=== PATIENT | female | born 1955 | race Caucasian/White ===

== ENCOUNTER 2019-05-17 14:16 | Emergency (ER) | payer MEDICARE, OTHER, SELFPAY ==
--- NOTE | 2019-05-17 14:21 | ED.URI ---
HPI - URI/Sore Throat General Chief Complaint: Upper Respiratory Infection Stated Complaint: Possible sinus infection Time Seen by Provider: 05/17/19 14:38 Source: patient and RN notes reviewed Mode of arrival: ambulatory Limitations: no limitations History of Present Illness HPI Narrative: 64-year-old female presents with concern for 8 day history of sinus congestion, sinus pressure, sinus drainage, left ear fullness. MD elicited complaint: nasal congestion Related Data Home Medications Medication Instructions Recorded Confirmed atorvastatin 20 mg PO DAILY 05/17/19 05/17/19 lisinopril 20 mg PO DAILY 05/17/19 05/17/19 Allergies Allergy/AdvReac Type Severity Reaction Status Date / Time No Known Allergies Allergy Unknown Unverified 10/01/16 09:46 Review of Systems Review of Systems: Narrative: CONSTITUTIONAL: Reports malaise, fever earlier in the week. EYES: Denies visual changes, redness, or discharge. ENT: Reports rhinorrhea, congestion, sinus pain, left otalgia. Denies sore throat. CARDIOVASCULAR: Denies chest pain, palpitations, or edema. RESPIRATORY: Denies cough or dyspnea. GASTROINTESTINAL: Denies abdominal pain, nausea, vomiting, diarrhea SKIN: Denies rash or itching. MUSCULOSKELETAL: Denies myalgia. NEUROLOGIC: Denies headache. All systems reviewed & are unremarkable except as noted in HPI and below PMFSH Comments At time of signature, agree with nursing past medical, surgical, social and family history. There is no relevant family history pertinent to the presenting complaint Exam Narrative: Exam Narrative: GENERAL: Well-appearing, well-nourished, and in no acute distress. HEAD: Normocephalic, atraumatic. EYES: PERRLA, conjunctivae clear, and EOMI. ENT: Nares clear, turbinates edematous and erythematous, purulent discharge, sinus tenderness. Mucous membranes moist. TM pearly carrasco with dull light reflex bilaterally; no tragal tenderness. Oropharynx not erythematous without lesions. Tonsils not enlarged and without exudate, no drooling, no hoarseness, no trismus. NECK: Supple. No lymphadenopathy CHEST: Clear to auscultation, breath sounds equal. No wheezing, rhonchi, rales, or stridor. No respiratory distress, speaks in full sentences. HEART: Regular rate and rhythm. No murmur heard. Normal peripheral pulses. SKIN: Warm, dry, no rash. NEURO: Alert and oriented x3. PSYCH: Normal mood and affect Course Course Emergency Course: Patient is aware of diagnosis, understands and agrees to treatment plan. Anticipatory guidance given. Patient agrees to follow-up as directed and is aware of reasons to seek care at the emergency department. Portions of this record may have been created with voice recognition software Vital Signs Vital signs: Vital Signs Temperature 98.5 F 05/17/19 14:31 Pulse Rate 87 05/17/19 14:31 Respiratory Rate 16 05/17/19 14:31 Blood Pressure 153/77 H 05/17/19 14:31 Pulse Oximetry 99 05/17/19 14:31 Temperature 98.5 F 05/17/19 14:31 Pulse Rate 87 05/17/19 14:31 Respiratory Rate 16 05/17/19 14:31 Blood Pressure 153/77 H 05/17/19 14:31 Pulse Oximetry 99 05/17/19 14:31 Reviewed. MDM - URI/Sore Throat MDM Narrative Medical decision making narrative: Differential diagnosis considered: Strep pharyngitis, allergic rhinitis, upper respiratory tract infection, sinusitis, rhinosinusitis, nasopharyngitis. viral pharyngitis, otitis media, otitis externa, pneumonia, bronchitis, viral cough syndrome, viral syndrome, and influenza. Exam findings show no acute concerns or changes; patient is non-toxic appearing and is in no distress. Patient is appropriate for outpatient treatment and follow-up. Critical Care Time Critical Care Time Critical Care Time: No Discharge Plan Discharge Clinical Impression: Acute bacterial sinusitis Patient Disposition: Home, Self-Care Condition: Stable Instructions: Antibiotic Form, Sinusitis (ED) Additional Instructions: Take
[2019-05-17 14:31] VITALS: BP 153/77; PULSE 87; RESP 16; TEMP 36.9; O2SAT 99
== END 2019-05-17 14:53 | disposition home or self-care (01) ==
PROVIDERS: Emergency Provider Nurse Practitioner; PCP Nurse Practitioner Adult Health
DX: J01.80 Other acute sinusitis (principal); B96.89 Other specified bacterial agents as the cause of diseases classified elsewhere
CPT/HCPCS: 99213; G0463

== ENCOUNTER 2019-09-15 00:41 | Outpatient (CLI) | payer MEDICARE, OTHER, SELFPAY ==
[2019-09-15 18:39] LABS: SARS-CoV-2 RNA PCR Negative
== END 2019-09-15 00:42 | disposition home or self-care (01) ==
LOC: ANHCOVIDDT 00:41
PROVIDERS: PCP Nurse Practitioner Adult Health; Visit Provider Internal Medicine Gastroenterology
DX: Z01.818 Encounter for other preprocedural examination (principal); Z11.59 Encounter for screening for other viral diseases
CPT/HCPCS: 87635; C9803; U0003

== ENCOUNTER 2019-09-17 01:03 | Day surgery (SDC) | payer MEDICARE, OTHER, SELFPAY ==
[2019-09-11 10:47] VITALS: BMI 21.4
[2019-09-17 08:29] VITALS: BP 214/100; PULSE 93; RESP 16; TEMP 36.6; O2SAT 100; BMI 20.2
--- NOTE | 2019-09-17 08:48 | WPDANESEPPF ---
Anes - Initial Pre Proc Eval Procedure: Operation Date: 09/17/19 09:00 Proposed Procedures p Colonoscopy - Nato Walker MD Date/Time: 09/17/19 08:48 Surgeon: Nato Walker MD Pre Op Diagnosis: positive cologuard Patient Data Age: 64 Gender: F Height: 5 ft 3 in Weight: 51.8 kg Last Vital Signs Temp 97.8 F 09/17/19 08:29 Pulse 93 09/17/19 08:29 Resp 16 09/17/19 08:29 BP 214/100 H 09/17/19 08:29 Pulse Ox 100 09/17/19 08:29 Allergies Allergy/AdvReac Type Severity Reaction Status Date / Time No Known Allergies Allergy Unknown Verified 09/17/19 08:28 Home Medications Medication Instructions Recorded Confirmed Type atorvastatin 20 mg PO DAILY 05/17/19 09/11/19 History lisinopril 20 mg PO DAILY 05/17/19 09/11/19 History cholecalciferol (vitamin D3) 25 mcg PO DAILY 09/11/19 09/11/19 History [Vitamin D3] diphenhydramine HCl [Benadryl 25 mg PO HS 09/11/19 09/11/19 History Allergy] lorazepam 0.5 mg PO PRN PRN 09/11/19 09/11/19 History Patient hx anesthesia problems: none Family hx anesthesia problems: none PMFSH Past Medical History Medical History (Updated 09/17/19 @ 08:47 by Jair Acuna MD) Anxiety Hyperlipidemia Hypertension Anes - Eval Final PreProcedure Day of Procedure 09/17/19 08:48 Patient weight: normal Heart: regular rate and rhythm Lungs: clear to auscultation Airway: Mallampati scale class II Neurological: alert and oriented Last oral intake: >/= 8 hours ASA classification: II Emergent: no Anesthetic plan: proceed Anesthesia type and monitoring: general GIVS and standard monitoring Informed Consent: The patient's anesthetic plan and its attendant risks and benefits were discussed with the patient/family/POA. Questions were solicited and answers provided to the satisfaction of the patient/family/POA.
[2019-09-17] MEDS: LACTATED RINGERS 1,000 ML 150 ML IV CONT (08:54)
--- NOTE | 2019-09-17 08:58 | PM.HPGS ---
History of Present Illness History of Present Illness Consent: Risks, benefits, and alternatives have been discussed and questions answered. Patient agrees to proceed with procedure. Chief complaint: positive cologuard Narrative: Lluvia Cabrera is a 64 year old W female referred for her 1st screening colonoscopy secondary to a positive colo guard test. Patient is asymptomatic and there is no known family history of colorectal cancer. [facility] Past Medical History Medical History (Updated 09/17/19 @ 08:59 by Nato Walker MD) Anxiety COPD (chronic obstructive pulmonary disease) Hyperlipidemia Hypertension Surgical History Surgical History (Updated 09/17/19 @ 08:59 by Nato Walker MD) Status post appendectomy Status post tonsillectomy and adenoidectomy Meds Home Medications and Allergies Home Medications Medication Instructions Recorded Confirmed Type atorvastatin 20 mg PO DAILY 05/17/19 09/11/19 History lisinopril 20 mg PO DAILY 05/17/19 09/11/19 History cholecalciferol (vitamin D3) 25 mcg PO DAILY 09/11/19 09/11/19 History [Vitamin D3] diphenhydramine HCl [Benadryl 25 mg PO HS 09/11/19 09/11/19 History Allergy] lorazepam 0.5 mg PO PRN PRN 09/11/19 09/11/19 History Allergies Allergy/AdvReac Type Severity Reaction Status Date / Time No Known Allergies Allergy Unknown Verified 09/17/19 08:28 Vital Signs Vital Signs - 24 hr 09/17/19 08:29 Temperature 36.6 C Pulse Rate 93 Respiratory Rate 16 Blood Pressure 214/100 H Pulse Oximetry 100 Exam Const: Orientation/consciousness: patient oriented x3 Resp: Auscultation: clear to auscultation bilaterally Cardio: Rate: regular rate Rhythm: regular rhythm Heart sounds: no murmurs GI: GI Palp: Yes Soft to palpation, No Tenderness to palpation present (GI), Yes No hepatosplenomegaly present and No Palpable mass present Auscultation: normal bowel sounds Neuro: General: patient oriented x3 and no focal motor deficits Extrem: General: no pedal edema Assessment and Plan Additional Plan screening colonoscopy secondary to a positive colo guard test
--- NOTE | 2019-09-17 10:23 | SUR.OPER ---
Two Resolution clips placed at distal sigmoid colon polyp- LOT [id number] EXP 2022-05-18 and LOT [id number] EXP 2022-05-18
[2019-09-17 10:32] VITALS: BP 118/61; PULSE 54; RESP 19; O2SAT 100
[2019-09-17 10:42] VITALS: BP 134/66; PULSE 59; RESP 20; O2SAT 100
[2019-09-17 10:49] VITALS: BP 153/65; PULSE 56; RESP 21; O2SAT 100
== END 2019-09-17 11:22 | disposition home or self-care (01) ==
PROVIDERS: PCP Nurse Practitioner Adult Health; Visit Provider Internal Medicine Gastroenterology
PROC: 0DJD8ZZ Inspection of Lower Intestinal Tract, Via Natural or Artificial Opening Endoscopic (ICD-10-PCS; CPT 45378; principal; 2019-09-17 09:00)
DX: Z12.11 Encounter for screening for malignant neoplasm of colon (principal); D12.4 Benign neoplasm of descending colon; D12.5 Benign neoplasm of sigmoid colon; R19.5 Other fecal abnormalities; K57.30 Diverticulosis of large intestine without perforation or abscess without bleeding; I10 Essential (primary) hypertension; E78.5 Hyperlipidemia, unspecified; F41.9 Anxiety disorder, unspecified
CPT/HCPCS: 45385; 45381; 88305; J2001; J2704; J7120

== ENCOUNTER 2019-10-13 07:48 | Outpatient (CLI) | payer MEDICARE, OTHER, SELFPAY ==
--- NOTE | ~2019-10-13 | DEXA_ITS ---
Bone Density Report Name: Lluvia Cabrera Age: 64 Sex: Female Ethnicity: White Date of : 1955 Indication: postmenopausal; Referring Provider: EVENS, LEWIS Study: Bone densitometry was performed. Exam Date: October 13, 2019 Accession number: [id number] Bone Density: Region BMD T-score Z-score Classification AP Spine (L1-L4) 0.783 -2.4 -0.6 Osteopenia Femoral Neck (Left) 0.706 -1.3 0.3 Osteopenia Total Hip (Left) 0.756 -1.5 -0.3 Osteopenia Total Hip Bilateral Avg 0.761 -1.5 -0.3 Osteopenia Femoral Neck (Right) 0.662 -1.7 -0.1 Osteopenia Total Hip (Right) 0.765 -1.5 -0.2 Osteopenia World Health Organization criteria for BMD impression classify patients as: Normal (T-score at or above -1.0), Osteopenia (T-score between -1.0 and -2.5), or Osteoporosis (T-score at or below -2.5). 10-year Fracture Risk(1): Major Osteoporotic Fracture 8.5% Hip Fracture 1.8% Reported Risk Factors: [place] (), Neck BMD=0.662, BMI=20.4, smoking (1) FRAX(R) Version 3.08. Fracture probability calculated for an untreated patient. Fracture probability may be lower if the patient has received treatment. Clinical Information Provided by Patient: Smokes Patient maximum height was 63.5 Menopause Age: 49 No regular weight bearing exercise Drinks caffeinated beverages Onset of menses at age 13 Number of children 2 Impression: The patient has low bone mass, based on the Total Spine T-score. The patient has an estimated ten-year risk of hip fracture of 1.8% and an estimated ten-year risk of major fracture of 8.5%, based on the WHO FRAX algorithm. The patient has risk factors, including: smoking. Discussion: BONE DENSITY IS LOW AT ONE OR MORE SKELETAL SITES. This patient's lowest T-score is low at one or more skeletal sites. It meets the World Health Organization's (WHO) criteria for ?low bone mass? (T-score between -1.0 and -2.5). The patient's 10-year risk of fracture as calculated by FRAX is less than the threshold where pharmacological therapy is recommended by the National Osteoporosis Foundation (NOF). However, all treatment decisions require clinical judgment and consideration of individual patient factors, including patient preferences, comorbidities, previous drug use, risk factors not captured in the FRAX model (e.g., frailty, falls, vitamin D deficiency, increased bone turnover, interval significant decline in bone density) and possible under or overestimation of fracture risk by FRAX. The patient should follow a healthful lifestyle (good nutrition with adequate calcium and vitamin D, and appropriate weight-bearing exercise). Follow-Up: Consider repeating this study in 2 to 3 years to reassess this patient's status, or sooner if there is some new clinical indication. Reported by: PARVEZ on 10/13/2019 8:34:00 A
--- NOTE | ~2019-10-13 | MM_ITS ---
EXAMINATION: MM screening [facility] BI w jaspreet HISTORY: Screening mammogram TECHNIQUE: Craniocaudal and mediolateral oblique 3-D tomosynthesis images were obtained and synthetic 2-D images were generated. CAD analysis was submitted and interpreted. COMPARISON: Comparison to multiple prior studies sequentially, with oldest reviewed study dated 01/22/2014. BREAST PARENCHYMAL COMPOSITION: There are scattered areas of fibroglandular density. FINDINGS: There is no evidence of suspicious mass, calcification, or architectural distortion to sugg est malignancy in either breast. There has been no suspicious interval change. IMPRESSION: 1. No mammographic evidence of malignancy. 2. Recommend routine screening mammography in one year. BI-RADS Category 1: Negative Reviewed, dictated and finalized at location A.
== END 2019-10-13 07:49 | disposition home or self-care (01) ==
LOC: ANHIMG 07:58
PROVIDERS: PCP Nurse Practitioner Adult Health; Visit Provider Nurse Practitioner Adult Health
DX: M85.89 Other specified disorders of bone density and structure, multiple sites (principal); Z12.31 Encounter for screening mammogram for malignant neoplasm of breast
CPT/HCPCS: 77063; 77067; 77080

== ENCOUNTER 2020-11-01 09:28 | Outpatient (CLI) | payer MEDICARE, OTHER, SELFPAY ==
--- NOTE | ~2020-11-01 | MM_ITS ---
EXAMINATION: MM screening [facility] BI w jaspreet HISTORY: Screening TECHNIQUE: Craniocaudal and mediolateral oblique 3-D tomosynthesis images were obtained and synthetic 2-D images were generated. CAD analysis was submitted and interpreted. COMPARISON: Comparison to multiple prior studies sequentially, with oldest reviewed study dated 01/13. BREAST PARENCHYMAL COMPOSITION: There are scattered areas of fibroglandular density. FINDINGS: There is no evidence of suspicious mass, calcification, or architectural distortion to sugg est malignancy in either breast. There has been no suspicious interval change. IMPRESSION: 1. No mammographic evidence of malignancy. 2. Recommend routine screening mammography in one year. BI-RADS Category 1: Negative Reviewed, dictated and finalized at location A.
== END 2020-11-01 09:29 | disposition home or self-care (01) ==
LOC: ANHIMG 09:34
PROVIDERS: PCP Nurse Practitioner Adult Health; Visit Provider Nurse Practitioner Adult Health
DX: Z12.31 Encounter for screening mammogram for malignant neoplasm of breast (principal)
CPT/HCPCS: 77063; 77067

== ENCOUNTER 2020-11-30 00:19 | Day surgery (SDC) | payer MEDICARE, OTHER, SELFPAY ==
[2020-11-17 14:29] VITALS: BMI 21.3
[2020-11-30] VITALS (8 sets, daily range): BP systolic 65–155; BP diastolic 28–87; PULSE 57–80; RESP 16–20; TEMP 36.3; O2SAT 99–100; BMI 21.7
--- NOTE | 2020-11-30 07:25 | PM.HPGS ---
History of Present Illness History of Present Illness Consent: Risks, benefits, and alternatives have been discussed and questions answered. Patient agrees to proceed with procedure. Chief complaint: hx of colon polyps Narrative: Lluvia Cabrera is a 65 year old female Here for colon cancer screening. she has a history of having polyps removed. Last year she had a 2 cm diameter sessile polyp removed. Review of Systems Review of Systems: All systems reviewed & are unremarkable except as noted in HPI and below PMFSH Past Medical History Medical History Anxiety COPD (chronic obstructive pulmonary disease) Hyperlipidemia Hypertension Surgical History Surgical History Status post appendectomy Status post tonsillectomy and adenoidectomy Social History Social History Smoking packs per day: 1 Smoking cigarettes per day: 20.0 Years smoked: 30 Smoking pack-years: 30.00 Smoking status: Current every day smoker Tobacco type: cigarettes Living arrangements: with family Spiritual care concerns: No Meds Home Medications and Allergies Home Medications Medication Instructions Recorded Confirmed Type atorvastatin 20 mg PO DAILY 05/17/19 11/17/20 History lisinopril 20 mg PO DAILY 05/17/19 11/17/20 History lorazepam 0.5 mg PO PRN PRN 09/11/19 11/17/20 History sodium,potassium,mag sulfates See Rx Instructions .ROUTE 11/04/20 Rx [Suprep Bowel Prep Kit] .COMPLEX #1 ml amlodipine 5 mg PO DAILY 11/17/20 11/17/20 History ergocalciferol (vitamin D2) 1 unit PO WEEKLY 11/17/20 11/17/20 History famotidine-Ca carb-mag hydrox 1 tablet PO DAILY 11/17/20 11/17/20 History [Pepcid Complete] multivit with min-folic acid 1 tablet PO DAILY 11/17/20 11/17/20 History [Adult One Daily Multivitamin] Allergies Allergy/AdvReac Type Severity Reaction Status Date / Time No Known Allergies Allergy Unknown Verified 11/30/20 07:43 Exam Resp: Auscultation: clear to auscultation bilaterally Cardio: Rate: regular rate Rhythm: regular rhythm GI: GI Palp: Yes Soft to palpation and No Tenderness to palpation present (GI) Assessment and Plan Assessment and plan (1) Personal history of colonic polyps: Code(s): Z86.010 - Personal history of colonic polyps Status: Acute Assessment and Plan: Colonoscopy with possible biopsy or polypectomy or cautery or injection of substances.
[2020-11-30] MEDS: LACTATED RINGERS 1,000 ML 150 ML IV CONT (07:51)
--- NOTE | 2020-11-30 08:12 | WPDANESEPPF ---
Anes - Initial Pre Proc Eval Procedure: Operation Date: 11/30/20 08:30 Proposed Procedures p Screening Colonoscopy - Edi Diane MD Date/Time: 11/30/20 08:12 Surgeon: Edi Diane MD Pre Op Diagnosis: hx of colon polyps Patient Data Age: 65 Gender: F Height: 1.55 m Weight: 52 kg Last Vital Signs Temp 36.3 C L 11/30/20 07:47 Pulse 80 11/30/20 07:47 Resp 16 11/30/20 07:47 BP 155/87 H 11/30/20 07:47 Pulse Ox 100 11/30/20 07:47 Allergies Allergy/AdvReac Type Severity Reaction Status Date / Time No Known Allergies Allergy Unknown Verified 11/30/20 07:43 Home Medications Medication Instructions Recorded Confirmed Type atorvastatin 20 mg PO DAILY 05/17/19 11/17/20 History lisinopril 20 mg PO DAILY 05/17/19 11/30/20 History lorazepam 0.5 mg PO PRN PRN 09/11/19 11/30/20 History sodium,potassium,mag sulfates See Rx Instructions .ROUTE 11/04/20 Rx [Suprep Bowel Prep Kit] .COMPLEX #1 ml amlodipine 5 mg PO DAILY 11/17/20 11/17/20 History ergocalciferol (vitamin D2) 1 unit PO WEEKLY 11/17/20 11/17/20 History famotidine-Ca carb-mag hydrox 1 tablet PO DAILY 11/17/20 11/17/20 History [Pepcid Complete] multivit with min-folic acid 1 tablet PO DAILY 11/17/20 11/17/20 History [Adult One Daily Multivitamin] Patient hx anesthesia problems: none Family hx anesthesia problems: none PMFSH Past Medical History Medical History Anxiety COPD (chronic obstructive pulmonary disease) Hyperlipidemia Hypertension Surgical History Surgical History Status post appendectomy Status post tonsillectomy and adenoidectomy Social History Social History Smoking packs per day: 1 Smoking cigarettes per day: 20.0 Years smoked: 30 Smoking pack-years: 30.00 Smoking status: Current every day smoker Tobacco type: cigarettes Living arrangements: with family Spiritual care concerns: No Anes - Eval Final PreProcedure Day of Procedure 11/30/20 08:12 Patient weight: normal Heart: regular rate and rhythm Lungs: clear to auscultation Airway: Mallampati scale class II Neurological: alert and oriented Last oral intake: >/= 8 hours ASA classification: III Emergent: no Anesthetic plan: proceed Anesthesia type and monitoring: general GIVS and standard monitoring Informed Consent: The patient's anesthetic plan and its attendant risks and benefits were discussed with the patient/family/POA. Questions were solicited and answers provided to the satisfaction of the patient/family/POA.
--- NOTE | 2020-11-30 08:53 | PC.NURSE ---
Kana, Nurse burglar alarm installer in room with patient.
== END 2020-11-30 09:23 | disposition home or self-care (01) ==
PROVIDERS: PCP Nurse Practitioner Adult Health; Visit Provider Internal Medicine Gastroenterology
PROC: 0DJD8ZZ Inspection of Lower Intestinal Tract, Via Natural or Artificial Opening Endoscopic (ICD-10-PCS; CPT 45378; principal; 2020-11-30 08:30)
DX: Z12.11 Encounter for screening for malignant neoplasm of colon (principal); K57.30 Diverticulosis of large intestine without perforation or abscess without bleeding; D12.3 Benign neoplasm of transverse colon; D12.5 Benign neoplasm of sigmoid colon; J44.9 Chronic obstructive pulmonary disease, unspecified; I10 Essential (primary) hypertension; E78.5 Hyperlipidemia, unspecified; F41.9 Anxiety disorder, unspecified; F17.210 Nicotine dependence, cigarettes, uncomplicated
CPT/HCPCS: 45385; 88305; J2001; J2704; J7120

== ENCOUNTER 2021-03-02 13:13 | Emergency (ER) | payer MEDICARE, OTHER, SELFPAY ==
--- NOTE | 2021-03-02 13:21 | ED.EAR ---
HPI - Ear Problem General Chief complaint: Ear Stated complaint: Ear Pain Time Seen by Provider: 03/02/21 13:21 Source: patient, RN notes reviewed and old records reviewed Mode of arrival: ambulatory Limitations: no limitations History of Present Illness HPI Narrative: 66-year-old female presents to the left ear pain for 2 days. Has not taken anything for pain. Denies any signs symptoms. Decreased hearing in the left ear. Denies chest pains, fever, abdominal pain. No nausea vomiting or diarrhea. History of high cholesterol, vitamin D deficiency and hypertension MD Complaint: ear pain (Left) and decreased hearing Location: left ear Related Data Home Medications Medication Instructions Recorded Confirmed atorvastatin 20 mg PO DAILY 05/17/19 03/02/21 lisinopril 20 mg PO DAILY 05/17/19 03/02/21 lorazepam 0.5 mg PO PRN PRN 09/11/19 03/02/21 Pepcid Complete 1 tablet PO DAILY 11/17/20 03/02/21 amlodipine 5 mg PO DAILY 11/17/20 03/02/21 ergocalciferol (vitamin D2) 1 unit PO WEEKLY 11/17/20 03/02/21 multivit with min-folic acid 1 tablet PO DAILY 11/17/20 03/02/21 [Adult One Daily Multivitamin] Allergies Allergy/AdvReac Type Severity Reaction Status Date / Time No Known Allergies Allergy Unknown Verified 03/02/21 13:29 Review of Systems Review of Systems: All systems reviewed & are unremarkable except as noted in HPI and below Constitutional: Constitutional: Reports no additional constitutional complaints, Denies chills and Denies fever(s) Eyes: Eyes: Reports no additional eye complaints ENT: Reports as per HPI Comments: Left ear pain Cardiovascular: Cardiovascular: Reports no additional cardiovascular complaints and Denies chest pain Respiratory: Respiratory: Reports no additional respiratory complaints, Denies cough and Denies dyspnea Gastrointestinal: Gastrointestinal: Reports no additional gastrointestinal complaints, Denies abdominal pain, Denies nausea and Denies vomiting Musculoskeletal: Musculoskeletal: Reports no additional musculoskeletal complaints Integumentary/Breasts: Skin/Breast: Reports system reviewed and no additional complaints, except as docu Neurologic: Reports system reviewed and no additional complaints, except as documented Psychiatric: Psychiatric: Reports no additional psychiatric complaints Allergic/Immunologic: Allergic/Immunologic: Reports no additional allergic/immunologic complaints PMFSH Past Medical History Medical History Anxiety COPD (chronic obstructive pulmonary disease) Hyperlipidemia Hypertension Surgical History Surgical History Status post appendectomy Status post tonsillectomy and adenoidectomy Social History Social History Smoking packs per day: 1 Smoking cigarettes per day: 20.0 Years smoked: 30 Smoking pack-years: 30.00 Smoking status: Current every day smoker Tobacco type: cigarettes Spiritual care concerns: No Comments At the time of my signature, I reviewed and agree with the nursing past medical, surgical, social, and family history. There is no relevant family history pertinent to the patient complaint. Exam Const: General: healthy appearing, no acute distress and alert Nutritional Appearance: well nourished Orientation/consciousness: patient oriented x3 Limitations: no limitations HENMT: Head: normal to inspection Ears: external ears normal, EAC's normal and TM abnormal erythematous on the left and with loss of landmarks on the left Face and sinus: normal facial exam Eyes: Pupils: Equal, round and reactive pupils present Neck: Neck: normal visual inspection, no meningeal signs and lymphadenopathy (Patient states her lymph nodes are normally enlarged since she was a teenag) Chest: Chest palpation & inspection: normal inspection of the chest Resp: Effort & Inspection: normal res
[2021-03-02 13:26] VITALS: BP 136/88; PULSE 101; RESP 18; TEMP 37.1; O2SAT 99
[2021-03-02 13:30] VITALS: BP 136/88; PULSE 101; RESP 18; TEMP 37.1; O2SAT 99
== END 2021-03-02 13:33 | disposition home or self-care (01) ==
PROVIDERS: Emergency Provider Nurse Practitioner; PCP Nurse Practitioner Adult Health
DX: H66.002 Acute suppurative otitis media without spontaneous rupture of ear drum, left ear (principal); F17.210 Nicotine dependence, cigarettes, uncomplicated; J44.9 Chronic obstructive pulmonary disease, unspecified; I10 Essential (primary) hypertension; E78.5 Hyperlipidemia, unspecified
CPT/HCPCS: 99213; G0463

== ENCOUNTER 2021-11-27 09:05 | Outpatient (CLI) | payer MEDICARE, OTHER, SELFPAY ==
--- NOTE | ~2021-11-27 | MM_ITS ---
EXAMINATION: MM screening [facility] BI w jaspreet HISTORY: Screening mammogram TECHNIQUE: Craniocaudal and mediolateral oblique 3-D tomosynthesis images were obtained and synthetic 2-D images were generated. Bilateral rotated lateral CC views. CAD analysis was submitted and interp reted. COMPARISON: 11/06 2020, 10/13/2019, 09/18/2017 bilateral screening mammogram examinations BREAST PARENCHYMAL COMPOSITION: There are scattered areas of fibroglandular density. FINDINGS: Occasional benign calcifications. There is no evidence of suspicious mass, calcification, o r architectural distortion to suggest malignancy in either breast. There has been no suspicious inter cecilia change. IMPRESSION: 1. No mammographic evidence of malignancy. 2. Recommend routine screening mammography in one year. BI-RADS Category 2: Benign finding(s). Reviewed, dictated and finalized at location A.
== END 2021-11-27 09:06 | disposition home or self-care (01) ==
LOC: ANHIMG 09:06
PROVIDERS: PCP Nurse Practitioner Adult Health; Visit Provider Nurse Practitioner Adult Health
DX: Z12.31 Encounter for screening mammogram for malignant neoplasm of breast (principal)
CPT/HCPCS: 77063; 77067

== ENCOUNTER 2022-02-08 12:42 | Emergency (ER) | payer MEDICARE, OTHER, SELFPAY ==
[2022-02-08 12:58] VITALS: BP 167/88; PULSE 84; RESP 18; TEMP 36.7; O2SAT 100
--- NOTE | 2022-02-08 13:51 | ED.EAR ---
HPI - Ear Problem General Chief complaint: Ear Stated complaint: Lt Ear Irritation Time Seen by Provider: 02/08/22 13:51 Source: patient Mode of arrival: ambulatory Limitations: no limitations History of Present Illness HPI Narrative: 67-year-old female presented for complaints of left ear pressure this morning. She endorses when getting out of bed, she felt unsteady and she needed to place her arm on the wall otherwise she would fall. She places her arm on the wall every morning, however today she felt more unsteady. She denies chest pain, palpitations, dizziness or room spinning sensation, tinnitus, nausea, vomiting, diarrhea, fevers or chills. No recent illness. she took a Claritin following her episode. She endorses concern due to her mother having a recurrent brain tumor, and she was unsteady prior to her . She is scheduled with her primary care provider in 1 week. Hx HTN, COPD. MD Complaint: ear pain Related Data Home Medications Medication Instructions Recorded Confirmed atorvastatin 20 mg tablet 20 mg PO DAILY 05/17/19 02/08/22 lisinopril 20 mg tablet 20 mg PO DAILY 05/17/19 02/08/22 lorazepam 0.5 mg tablet 0.5 mg PO PRN PRN Anxiety 09/11/19 02/08/22 amlodipine 5 mg tablet 5 mg PO DAILY 11/17/20 02/08/22 ergocalciferol (vitamin D2) 1,250 1 unit PO WEEKLY 11/17/20 02/08/22 mcg (50,000 unit) capsule famotidine-Ca carb-mag hydrox 10 1 tablet PO DAILY 11/17/20 02/08/22 mg-800 mg-165 mg chewable tablet (Pepcid Complete) multivitamin with minerals-folic 1 tablet PO DAILY 11/17/20 02/08/22 acid 0.4 mg tablet (Adult One Daily Multivitamin) Allergies Allergy/AdvReac Type Severity Reaction Status Date / Time No Known Allergies Allergy Unknown Verified 02/08/22 13:42 Review of Systems Review of Systems: CONSTITUTIONAL: Denies malaise, chills, or fever. EYES: Denies visual changes, redness, or discharge. ENT: Denies rhinorrhea, congestion, sinus pain, and sore throat. Reports ear pressure CARDIOVASCULAR: Denies chest pain, palpitations, or edema. RESPIRATORY: Denies cough or dyspnea. GASTROINTESTINAL: Denies abdominal pain, nausea, vomiting, diarrhea SKIN: Denies rash or itching. MUSCULOSKELETAL: Denies myalgia. NEUROLOGIC: Denies headache. All systems reviewed & are unremarkable except as noted in HPI and below PMFSH Past Medical History Medical History Anxiety COPD (chronic obstructive pulmonary disease) Hyperlipidemia Hypertension Surgical History Surgical History Status post appendectomy Status post tonsillectomy and adenoidectomy Social History Social History Smoking packs per day: 1 Smoking cigarettes per day: 20.0 Years smoked: 30 Smoking pack-years: 30.00 Smoking status: Current every day smoker Tobacco type: cigarettes Spiritual care concerns: No Comments At time of signature, agree with nursing past medical, surgical, social and family history. There is no relevant family history pertinent to the presenting complaint Exam Narrative: GENERAL: Well-appearing HEAD: Normocephalic EYES: PERRLA, EOMI conjunctivae clear ENT: Nares clear. Mucous membranes moist. TMs pearly carrasco with normal light reflex bilaterally; no tragal tenderness. Oropharynx not erythematous without lesions. . NECK: Supple. No lymphadenopathy CHEST: Clear to auscultation, breath sounds equal. HEART: Regular rate and rhythm. No murmur heard. SKIN: Warm, dry, no rash. NEURO: Alert and oriented x3. No focal deficits. Gait steady. PSYCH: Normal mood and affect Course Course Emergency Course: Patient is aware of diagnosis, understands and agrees to treatment plan. Anticipatory guidance given. Patient agrees to follow-up as directed and is aware of reasons to seek care at the emergency department. Portions of this record may jansen
== END 2022-02-08 14:08 | disposition home or self-care (01) ==
PROVIDERS: Emergency Provider Nurse Practitioner Family; PCP Nurse Practitioner Adult Health
DX: H93.8X2 Other specified disorders of left ear (principal); J44.9 Chronic obstructive pulmonary disease, unspecified; E78.5 Hyperlipidemia, unspecified; I10 Essential (primary) hypertension; F41.9 Anxiety disorder, unspecified; F17.219 Nicotine dependence, cigarettes, with unspecified nicotine-induced disorders
CPT/HCPCS: 99211; G0463

== ENCOUNTER 2022-06-20 12:35 | Outpatient (CLI) | payer MEDICARE, OTHER, SELFPAY ==
--- NOTE | ~2022-06-20 | CT_ITS ---
EXAMINATION:CT lung screening DATE: 06/20/2022 13:15 INDICATION: Tobacco use. Current smoker with 40 pack year history. TECHNIQUE: Computed tomography (CT) of the chest was performed without intravenous contrast. Automate d exposure control and iterative reconstruction technique were employed. The dose-length product (DLP ) was 59.29 mGy-cm. COMPARISON: Chest CT 11/28/2016 FINDINGS: There is stable mild scarring at the lung apices. There is mild emphysema. There is mild at electasis bilaterally. There is a 3 mm nodule in left upper lobe. No pleural effusion. The heart size is normal. There are coronary artery calcifications. No pericardial effusion. There is kyphosis of t horacic spine. There is mild chronic anterior wedging of multiple vertebral bodies. There is moderate thoracic spondylosis. IMPRESSION: 1. Lung-RADS category 2: Benign appearance or behavior. Continue annual screening with noncontrast lo w-dose chest CT in 12 months. Reviewed, dictated and finalized at location A. E [employer] ASSOC[employer]ATE IMPRESSION: 1. Lung-RADS category 2: Benign appearance or behavior. Continue annual screeni ng with noncontrast low-dose chest CT in 12 months.
--- NOTE | ~2022-06-20 | US_ITS ---
EXAMINATION: US thyroid DATE: 06/20/2022 13:15 INDICATION: Goiter. TECHNIQUE: Multiple ultrasound images of the thyroid were obtained. COMPARISON: None. FINDINGS: The right thyroid lobe measures 4.8 x 1.0 x 1.3 cm. The left thyroid lobe measures 4.1 x 1.1 x 1.7 c m. In the right thyroid lobe, there is a 3 mm cystic nodule (TI-RADS TR1). In the left thyroid lobe, there is a 6 mm solid, hypoechoic, wider than tall nodule with smooth margin without echogenic foci (TR4). IMPRESSION: 1. Small thyroid nodules, likely not clinically significant. No follow-up is needed. Reviewed, dictated and finalized at location A. T WEIGHER IMPRESSION: 1. Small thyroid nodules, likely not clinically significant. No follow-up is ne eded.
== END 2022-06-20 12:36 | disposition home or self-care (01) ==
PROVIDERS: PCP Family Medicine; Visit Provider Family Medicine
DX: Z12.2 Encounter for screening for malignant neoplasm of respiratory organs (principal); E04.2 Nontoxic multinodular goiter; Z91.89 Other specified personal risk factors, not elsewhere classified; F17.200 Nicotine dependence, unspecified, uncomplicated; Z78.9 Other specified health status
CPT/HCPCS: 71271; 76536

== ENCOUNTER 2022-07-26 08:45 | Outpatient (CLI) | payer MEDICARE, OTHER, SELFPAY ==
--- NOTE | ~2022-07-26 | DEXA_ITS ---
Bone Density Report Name: DOMINIC WEBER Age: 67 Sex: Female Ethnicity: White Date of : 1955 Indication: osteopenia; postmenopausal Referring Provider: ESTER, [facility] Study: Bone densitometry was performed. Exam Date: July 26, 2022 Accession number: [id number] Bone Density: Region BMD T-score Z-score Classification AP Spine(L1-L4) 0.743 -2.8 -0.8 Osteoporosis Femoral Neck (Left) 0.688 -1.5 0.3 Osteopenia Total Hip (Left) 0.760 -1.5 -0.1 Osteopenia Femoral Neck (Right) 0.659 -1.7 0.0 Osteopenia Total Hip (Right) 0.763 -1.5 -0.1 Osteopenia Total Hip Mean 0.762 -1.5 -0.1 Osteopenia World Health Organization criteria for BMD impression classify patients as: Normal (T-score at or above -1.0), Osteopenia (T-score between -1.0 and -2.5), or Osteoporosis (T-score at or below -2.5). 10-year Fracture Risk: FRAX not reported because: Some T-score for Spine Total or Hip Total or Femoral Neck at or below -2.5 Previous Exams: Region Exam Age BMD T-score BMD Change BMD Change Date g/cm2 vs Baseline vs Previous AP Spine (L1-L4) 07/26/2022 67 0.743 -2.8 -0.040 (-5.2%) -0.040 (-5.2%) 10/13/2019 64 0.783 -2.4 Total Hip(Left) 07/26/2022 67 0.760 -1.5 0.005 (0.6%)# 0.005 (0.6%)# 10/13/2019 64 0.756 -1.5 Total Hip(Right) 07/26/2022 67 0.763 -1.5 -0.001 (-0.2%) -0.001 (-0.2%) 10/13/2019 64 0.765 -1.5 *Denotes significance at 95% confidence level, LSC for AP Spine = 0.022 g/cm2, LSC for Total Hip = 0.027 g/cm2 # Denotes dissimilar scan types or analysis methods Clinical Information Provided by Patient: Smokes Patient maximum height was 63.5 Menopause Age: 49 No regular weight bearing exercise Drinks caffeinated beverages Onset of menses at age 13 Number of children 2 Impression: The patient has osteoporosis, based on the Total Spine T-score. The patient has risk factors, including: smoking. No significant bone loss was observed. Discussion: INCREASED RISK OF FRACTURE. BONE DENSITY IS UNDESIRABLY LOW AT ONE OR MORE SKELETAL SITES, CONSISTENT WITH POSTMENOPAUSAL OSTEOPOROSIS. This patient's lowest T-score meets the World Health Organization's (WHO) criteria for osteoporosis at one or more sites (T-score -2.5 or below). In untreated patients, the risk of osteoporotic fracture increases approximately two-fold for each 1.0 SD decrease in T-score. Low bone density is not the only risk factor for fracture; also consider f
== END 2022-07-26 08:46 | disposition home or self-care (01) ==
PROVIDERS: PCP Family Medicine; Visit Provider Family Medicine
DX: E04.9 Nontoxic goiter, unspecified (principal); Z91.89 Other specified personal risk factors, not elsewhere classified; F17.200 Nicotine dependence, unspecified, uncomplicated; M81.0 Age-related osteoporosis without current pathological fracture; M85.852 Other specified disorders of bone density and structure, left thigh; M85.851 Other specified disorders of bone density and structure, right thigh
CPT/HCPCS: 77080

== ENCOUNTER 2023-03-21 09:28 | Outpatient (CLI) | payer MEDICARE, OTHER, SELFPAY ==
--- NOTE | ~2023-03-21 | MM_ITS ---
EXAMINATION: MM screening aniceto BI w jaspreet HISTORY: Screening mammogram TECHNIQUE: Craniocaudal and mediolateral oblique 3-D tomosynthesis images were obtained and synthetic 2-D images were generated. CAD analysis was submitted and interpreted. COMPARISON: 11/27/2021, 11/01/2020, 10/13/2019 BREAST PARENCHYMAL COMPOSITION: There are scattered areas of fibroglandular density. FINDINGS: Scattered benign-appearing calcifications are present. No suspicious mass, calcification, o r architectural distortion are identified in either breast to suggest malignancy. There has been no s uspicious interval change. IMPRESSION: 1. No mammographic evidence of malignancy. 2. Recommend routine screening mammography in one year. BI-RADS Category 2: Benign finding(s). Reviewed, dictated and finalized at location A. NCE BROKER
== END 2023-03-21 09:29 | disposition home or self-care (01) ==
PROVIDERS: PCP Family Medicine; Visit Provider Family Medicine
DX: Z12.31 Encounter for screening mammogram for malignant neoplasm of breast (principal)
CPT/HCPCS: 77063; 77067

== ENCOUNTER 2023-07-03 10:53 | Outpatient (CLI) | payer MEDICARE, OTHER, SELFPAY ==
--- NOTE | ~2023-07-03 | CT_ITS ---
CT Scan of the Chest without Contrast: Clinical Indication: Lung cancer screening, personal history of nicotine dependence Technique: Contiguous sections were acquired throughout the chest without intravenous contrast. Dose reduction technique was used on this scan by utilizing automated exposure control and iterative recon struction technique. The dose-length product (DLP) was 63.20 mGy-cm. COMPARISON: 06/20/2022 Findings: There is no evidence of any significant mediastinal, hilar or axillary lymphadenopathy. There are ath erosclerotic calcifications of the aorta and coronary arteries. There is no evidence of pleural or pericardial effusion. The lungs are clear. No pulmonary nodules or infiltrates are noted. Upper lobe emphysema noted. Images through the upper abdomen reveal no abnormalities. Impression: Lung RADS 1: Negative. 12 month follow-up screening CT advised. Upper lobe emphysema. Reviewed, dictated and finalized at location . Impression: Lung RADS 1: Negative. 12 month follow-up screening CT advised. Upper lobe emphysema.
== END 2023-07-03 10:54 | disposition home or self-care (01) ==
PROVIDERS: PCP Family Medicine; Visit Provider Family Medicine
DX: Z12.2 Encounter for screening for malignant neoplasm of respiratory organs (principal); J43.9 Emphysema, unspecified; F17.210 Nicotine dependence, cigarettes, uncomplicated
CPT/HCPCS: 71271

== ENCOUNTER 2024-06-07 12:18 | Emergency (ER) | payer MEDICARE, OTHER, SELFPAY ==
--- NOTE | ~2024-06-07 | XR_ITS ---
HISTORY: right elbow pain COMPARISON: None TECHNIQUE: 3 views of the right elbow were performed FINDINGS: No acute fracture is identified. No elevation of the anterior or posterior fat pads are identified to suggest a supracondylar fracture . Overlying soft tissues are unremarkable. Bone mineralization is age-appropriate. IMPRESSION: No acute fracture or dislocation, as detailed above. Reviewed, dictated and finalized at location A. T SPA DESK
--- NOTE | ~2024-06-07 | CT_ITS ---
History: Facial paresthesias PROCEDURE: CT head without contrast. COMPARISON: None TECHNIQUE: Axial imaging of the head performed from the skull base to the vertex without IV contrast. Sagittal a nd coronal reformations obtained. DLP: 605 mGy-cm FINDINGS: The ventricles are normal in size, shape and position. There is no mass, mass effect or midline shift. There is no abnormal extra-axial fluid collection or intracranial hemorrhage. Visualized paranasal sinuses are clear. The mastoid air cells are well aerated. No acute displaced fractures within the overlying cranium. Impression: No acute intracranial hemorrhage or suspicious mass effect. Reviewed, dictated and finalized at location A. MAL INTELLIGENCE ANALYST Impression: No acute intracranial hemorrhage or suspicious mass effect.
--- OUTSIDE RECORDS SUMMARY | 2024-06-07 12:20 | XMS_ITS | Encounter Summary ---
Author Organization [employer] [facility] [employer] Address [address] [place] [address] Care Team Providers Care It Manager Name Role Phone Kristi Pisano MD Primary Care Provider [phone] Encounter Details Date Type Department Care Team (Late st Contact Info) Description 01/31/2005 Outpatient Historical [facility] MAMM Sharon Santo MD [address] [place] [address] SCREENING MAMM-MAILG NEOPL NEC (Primary Dx) Social History Tobacco Use Types Packs/Day Years Used Date Smoking Tobacco: Never Assessed Comments Unknown Sex and Gender Information Value Date Recorded Sex Assigned at Not on file Legal Sex Female 5:21 AM [employer]IC HISTORIAN Gender Identity Not on file Sexual Orientation Not on file documented as of this encounter Plan of Treatment Not on file documented as of this encounter Visit Diagnoses Diagnosis Other screening mammogram- Primary documented in this encounter Care Teams It Manager Relationship Specialty Start Date End Date Kristi Pisano MD [address] [facility] [address] [place] [id number] PCP - General 04/01/15 documented as of this encounter
--- OUTSIDE RECORDS SUMMARY | 2024-06-07 12:20 | XMS_ITS | Data Portability ---
Author Organization [facility], Main Office Address [address] [place] [address] Care Team Providers Care Final Cigar And Box Examiner Name Role Phone EL SEXTON Primary Care Provider [phone] Assessment Encounter Date Assessment Date Assessment LastModified by Organization Details LastModified Time 06/19/2023 06/19/2023 68 yo F with - WELL ADULT VISIT - HTN - HLD - ANXIETY - GOITER - KYPHOSIS - SMOKER - H/O HYPERCALCEMIA LDCT chest: 06/20/22. US thyroid: 06/20/22. Annual labs: 06/12/22. D/w pt in detail about her conditions, recent labs & imagines and further plan of care. Will do routine labs, LDCT chest. Explained about different options for her. Meds as directed. Diet and exercise explained in detail. BP diary education given and call us if any concerns. Encouraged pt to cut down and quit smoking. F/u with counsellor as per schedule. Cont f/u with GI as per schedule. Cont f/u with Ophtho as per schedule. Educated pt about alarming symptoms to monitor at home. Pt has tried Chantix and Wellbutrin in the past and got s/e from it. Pt did not like Setraline. HM: WWE - 8 yrs ago. Normal as per pt. Pt declined. Mammo - 03/21/23, normal. Colonoscopy - 2020, polyps ++. Cont f/u with GI as per schedule (5 yrs). DEXA - 07/26/22, osteoporosis ++. Flu - 01/05. Tdap - Pt declined. Pneumo - 01/02. Shingrix - At pharmacy/HD. F/u in 3-4 weeks. Annual labs, LDCT chest in 07/07. [email or web address] Not available 06/19/2023 12:52:26 07/30/2023 07/30/2023 68 yo F with - HTN - HLD - ANXIETY - GOITER - KYPHOSIS - SMOKER - H/O HYPERCALCEMIA LDCT chest: 07/03/23. Annual labs: 06/26/23. LDCT chest: 06/20/22. US thyroid: 06/20/22. Annual labs: 06/12/22. D/w pt in detail about her conditions, recent labs & imagines and further plan of care. MAWV questionnaire reviewed with pt. Answered all questions and concerns for the pt. Fall risk precautions explained. All meds verified with pt. Meds as directed. Diet and exercise explained in detail. BP diary education given and call us if any concerns. Encouraged pt to cut down and quit smoking. F/u with counsellor as per schedule. Cont f/u with GI as per schedule. Cont f/u with Ophtho as per schedule. Educated pt about alarming symptoms to monitor at home. Pt has tried Chantix and Wellbutrin in the past and got s/e from it. Pt did not like Setraline. HM: WWE - 8 yrs ago. Normal as per pt. Pt declined. Mammo - 03/21/23, normal. Colonoscopy - 2020, polyps ++. Cont f/u with GI as per schedule (5 yrs). DEXA - 07/26/22, osteoporosis ++. Flu - 01/05. Tdap - Pt declined. Pneumo - 01/02. Shingrix - At pharmacy/HD. F/u in 3-4 months. Annual labs, LDCT chest in 07/07. [email or web address] Not available 07/30/2023 15:53:56 10/29/2023 10/29/2023 68 yo F with - HTN - HLD - ANXIETY - GOITER - KYPHOSIS - SMOKER - H/O HYPERCALCEMIA LDCT chest: 07/03/23. Annual labs: 06/26/23. LDCT chest: 06/20/22. US thyroid: 06/20/22. Annual labs: 06/12/22. D/w pt in detail about her conditions, recent labs & imagines and further plan of care. [place] refer [place]. [place] All meds verified with pt. Meds as directed. Diet and exercise explained in detail. BP diary education given and call us if any concerns. Encouraged pt to cut down and quit smoking. F/u with Pulmo as per schedule. F/u with counsellor as per schedule. Cont f/u with GI as per schedule. Cont f/u with Ophtho as per schedule. Educated pt about alarming symptoms to monitor at home. Pt has tried Chantix and Wellbutrin in the past and got s/e from it. Pt did not like Setraline. HM: WWE - 8 yrs ago. Normal as per pt. Pt declined. Mammo - 03/21/23, normal. Colonoscopy - 2020, polyps ++. Cont f/u with GI as per schedule (5 yrs). DEXA - 07/26/22, osteoporosis ++. Flu - 01/05. Tdap - Pt declined. Pneumo - 01/02. Shingrix - At pharmacy/HD. F/u in 3-4 months. Annual labs, LDCT chest in 07/07. [email or web address] Not available 10/29/2023 15:49:30 02/12/2024 02/12/2024 69 yo F with - HTN - HLD - ANXIETY - GOITER - KYPHOSIS - SMOKER - H/O HYPERCALCEMIA LDCT chest: 07/03/23. Annual labs: 06/26/23. LDCT chest: 06/20/22. US thyroid: 06/20/22. Annual labs: 06/12/22. D/w pt in detail about her conditions, recent labs & imagines and further [place] of care. [place]. All meds verified with pt. Meds as directed. Diet and exercise explained in detail. BP diary education given and call us if any concerns. Encouraged pt to cut down and quit smoking. F/u with Pulmo as per schedule. F/u with counsellor as per schedule. Cont f/u with GI as per schedule. Cont f/u with Ophtho as per schedule. Educated pt about alarming symptoms to monitor at home. Pt has tried Chantix and Wellbutrin in the past and got s/e from it. Pt did not like Setraline. HM: WWE - 8 yrs ago. Normal as per pt. Pt declined. Mammo - 12/7/23, normal. Colonoscopy - 2020, polyps ++. Cont f/u with GI as per schedule (5 yrs). DEXA - 07/26/22, osteoporosis ++. Flu - Pt gets at pharmacy. Tdap - 2022. Pneumo - 01/02. Shingrix - At pharmacy/HD. F/u in 3-4 months. Annual labs, LDCT chest in 07/07. [email or web address] Not available 02/12/2024 12:10:29 05/14/2024 05/14/2024 69 yo F with - HTN, uncontrolled - HLD - ANXIETY - GOITER - KYPHOSIS - SMOKER - H/O HYPERCALCEMIA LDCT chest: 07/03/23. Annual labs: 06/26/23. LDCT chest: 06/20/22. US thyroid: 06/20/22. Annual labs: 06/12/22. D/w pt in detail about her conditions, recent labs & imagines and further [place] of care. [place]. All meds verified with pt. Meds as directed. Diet and exercise explained in detail. BP diary education given and call us if any concerns. Encouraged pt to cut down and quit smoking. F/u with Pulmo as per schedule. F/u with counsellor as per schedule. Cont f/u with GI as per schedule. Cont f/u with Ophtho as per schedule. Educated pt about alarming symptoms to monitor at home. Pt has tried Wellbutrin in the past and got s/e from it. Pt did not like Sertraline. HM: WWE - 8 yrs ago. Normal as per pt. Pt declined. Mammo - 03/21/23, normal. Colonoscopy - 2020, polyps ++. Cont f/u with GI as per schedule (5 yrs). DEXA - 07/26/22, osteoporosis ++. Flu - Pt gets at pharmacy. Tdap - 2022. Pneumo - 01/02. Shingrix - At pharmacy/HD. F/u in 1.5 months. Annual labs, LDCT chest in 07/07. Not available 05/14/2024 12:32:44 Plan of Treatment Reminders Order Date Submit Date Provider Last Modified By Organization Details Last Modified Time Details Appointments Medicare Wellness 30 2024 10:00A M El Sexton MD Not available Not available Not available Lab CBC w/ auto diff 2023 024 [facility], [facility] [address], [address], [place], [address], 06/27/2023 05:33:23 CMP, serum or plasma 2023 024 [facility], [address], [place], [address], 06/27/2023 05:33:22 urinalysi s complete, reflex culture 2023 024 [facility] [address] [address], [address], [place], [address], 06/27/2023 05:33:24 lipid panel, serum 2023 024 [facility], [address], [place], [address], 06/27/2023 05:33:20 TSH, serum, reflex free T4 2023 024 [place] [address] [facility] [address] [address], [address], [place], [address], 07/26/2023 10:21:23 vitamin D, 25-hydrox y, total, serum 2023 024 [facility], [address], [place], [address], 06/27/2023 05:33:27 HbA1c (hemoglob in A1c), blood [address] (Lab), [address] [place], [address], 07/26/2023 10:21:23 Referral pulmonolo gist referral - Please call patient to schedule an appointme nt. Thank you 2023 024 [email or web address] Nba Klein MD, [address] [facility], [place], [address], 11/26/2023 08:33:38 Procedures None recorded. Surgeries None recorded. Imaging LDCT, chest, for lung cancer screening - *Please call pt to schedule* 2023 024 [facility], [address], [place], [address], 07/03/2023 12:29:03 Medication Orders alendrona te 70 mg tablet 2024 025 [facility]33199, [address], [place], [id number], 05/14/2024 12:14:48 lisinopri l 40 mg tablet 2024 025 [facility] #74135, [address], [place], [id number], 05/14/2024 12:14:56 metoprolo l succinate ER 50 mg tablet,ex tended release 24 hr 2024 025 [facility] #02973, [address], [place], [id number], 05/14/2024 12:15:06 varenicli ne tartrate 0.5 mg tablet 2024 025 [facility] #01773, [address], [place], [id number], 05/14/2024 12:14:54 lorazepam 0.5 mg tablet 2024 025 [facility] #56197, [address], [place], [id number], 05/14/2024 12:15:15 bupropion HCl XL 150 mg 24 hr tablet, extended release 2024 [facility] #81188, [address] [facility], [place], [place], [id number], 05/14/2024 12:14:56 atorvasta tin 40 mg tablet 2024 [facility] #23902, [address] [facility], [place], [place], [id number], 05/14/2024 12:14:52 alendrona te 70 mg tablet 2023 [facility] #35423, [address] [facility], [place], [place], [id number], 02/12/2024 12:11:50 lisinopri l 40 mg tablet 2023 [facility] #32464, [address] [facility], [place], [place], [id number], 02/12/2024 12:11:58 metoprolo l succinate ER 25 mg tablet,ex tended release 24 hr 2023 [email or web address] [facility] #00228, [address], [place], [id number], 05/14/2024 12:18:04 varenicli ne tartrate 0.5 mg tablet 2023 [facility] #02857, [address] [facility], [place], [place], [id number], 02/12/2024 12:11:51 lorazepam 0.5 mg tablet 2023 [facility] #46525, [address], [place], [id number], 02/12/2024 12:11:58 bupropion HCl XL 150 mg 24 hr tablet, extended release 2023 [facility] #78090, [address] [facility], [place], [place], [id number], 02/12/2024 12:11:53 atorvasta tin 40 mg tablet 2023 [facility] #84180, [address] [facility], [place], [place], [id number], 02/12/2024 12:11:55 alendrona te 70 mg tablet 2023 [facility] #96850, [address] [facility], [place], [place], [id number], 10/29/2023 15:37:11 lisinopri l 40 mg tablet [address] [facility] #41742, [address] [facility], [place], [place], [id number], 10/29/2023 15:39:06 metoprolo l succinate ER 25 mg tablet,ex tended release 24 hr [address] [facility] #93070, [address] [facility], [place], [place], [id number], 05/14/2024 12:18:04 lorazepam 0.5 mg tablet 2023 [facility] #64939, [address] [facility], [place], [place], [id number], 10/29/2023 15:37:15 bupropion HCl XL 150 mg 24 hr tablet, extended release 2023 [facility] #39354, [address] [facility], [place], [place], [id number], 10/29/2023 15:37:09 atorvasta tin 40 mg tablet 2023 [facility] #06200, [address] [facility], [place], [place], [id number], 10/29/2023 15:37:19 alendrona te 70 mg tablet 2023 [facility] #91577, [address] [facility], [place], [place], [id number], 07/30/2023 15:45:14 lisinopri l 40 mg tablet 2023 [facility] #25890, [address] [facility], [place], [place], [id number], 07/30/2023 15:46:01 metoprolo l succinate ER 25 mg tablet,ex tended release 24 hr [address] [facility] #35911, [address] [facility], [place], [place], [id number], 05/14/2024 12:18:04 escitalop rizwana 5 mg tablet [address] [facility] #66671, [address] [facility], [place], [place], [id number], 07/30/2023 16:30:48 lorazepam 0.5 mg tablet 2023 [facility] #92056, [address] [facility], [place], [place], [id number], 07/30/2023 15:47:40 atorvasta tin 40 mg tablet 2023 [facility] #60930, [address] [facility], [place], [place], [id number], 07/30/2023 15:45:16 alendrona te 70 mg tablet 2023 [facility] #68146, [address] [facility], [place], [place], [id number], 06/19/2023 12:41:53 lisinopri l 40 mg tablet 2023 024 [facility] #96369, [address] [facility], [place], [place], [id number], 06/19/2023 12:41:56 metoprolo l succinate ER 25 mg tablet,ex tended release 24 hr 2023 024 [facility] #72610, [address] [facility], [place], [place], [id number], 05/14/2024 12:18:04 escitalop rizwana 5 mg tablet 2023 024 [facility] #00681, [address] [facility], [place], [place], [id number], 06/19/2023 12:46:01 atorvasta tin 40 mg tablet 2023 024 [facility] #87564, [address] [facility], [place], [place], [id number], 06/19/2023 12:41:56 Patient TargetsNo targets recorded. Patient Instructions Encounter Date Encounter Id Patient Instructions Last Modified By Organization Details Last Modified Time 07/30/2023 [id number] dementia rating scale-2* Not available 07/30/2023 16:00:17 depression screening* Not available 07/30/2023 16:00:59 alcohol misuse* Not available 07/30/2023 16:01:32 Personalized [facility] Plan and Screening Recommendations Advance Directives - Do you have one? Yes Advance Directives - Do we have your advance directive on file in your health record? Primary Prevention/Interven tion (prevents or decreases the chance of common diseases from occurring) Smoking Risk: Smoker Refer to attached smoking cessation handouts Refer to attached handouts and prescription will be sent to pharmacy Continue to consider stopping smoking and call if we can assist you Alcohol Misuse Screening: Negative Weight: Appropriate continue your current weight loss efforts Physical activity: Need more exercise/physical activity minimum of 10-20 minutes of activity that causes mild breathlessness/day minimum of 20-30 minutes activity that causes mild breathlessness/day Nutrition: Good Average Fall Risk (screened today): Low Vaccines Pneumococcal: Ordered Recommended today Recommended today, but you have declined No further needed Influenza: Your next one in the fall of this year Chronic Disease Risks Stroke: Low Risk Intermediate Risk I have no recommendations Act mahogany diagnosis, Continue current treatment plan Heart Attack: Low risk Intermediate Risk I have no recommendations Act mahogany diagnosis, Continue current treatment plan Clogging of the Arteries: Low risk Intermediate Risk I have no recommendations Act mahogany diagnosis, Continue current treatment plan Diabetes: Low Risk I have no recommendations Secondary Prevention/Interven tion (detects treatable diseases before they may cause symptoms, disability, or ) Breast Cancer Screening with mammogram: Cervical/Uterine/Ov delmer Cancer Screening: No screening necessary Osteoporosis Screening: No screening necessary Date Screening Last Performed: 07/26/22 Colon Cancer Screening: Colonoscopy Date Screening Last Performed: 2020 Eye Disease Screening: No Eye exam necessary Dementia Risk: Low I have no recommendations Depression Screening: Negative Not available 07/30/2023 16:05:28 Reason for Referral [employer] Referral for P ulmonary emphysema Please call patient to schedule an appointment. Thank you Referring Physician: El Sexton, Family Medicine, Encounter Date: 10/29/2023 Results Created Date Observation Date Name Description Value Unit Range Abnormal Flag Note LastModifiedBy Organization Detail LastModifiedTime 06/26/1906/27/2023 LIPID PANEL , STAND JAILENE cholesterol, total 140 mg/dL <200 normal Not Available [facility] [address] [place], [address], 06/27/2023 05:33:20 06/26/19 24 06/27/2023 LIPID PANEL , STAND JAILENE HDL cholesterol 54 mg/dL > or = 50 normal Not Available [facility] [address] [place], [address], 06/27/2023 05:33:20 06/26/19 24 06/27/2023 LIPID PANEL , STAND JAILENE triglyceride s 57 mg/dL <150 normal Not Available [facility] [address] [place], [address], 06/27/2023 05:33:20 06/26/19 24 06/27/2023 LIPID PANEL , STAND JAILENE LDL-choleste rol 73 mg/dL _(francesca c) normal Refer ence range : <100 Sai able range <100 mg/dL for prima ry preve ntion ; <70 mg/dL for patie nts with CHD or diabe tic patie nts with > or = 2 CHD risk facto rs. LDL-C is now calcu lated using the Joana n-Hop kins calcu leonid n, which is a valid ated novel metho d provi ding yasir r accur acy than the Fried mariam equat ion in the estim ation of LDL-C . Joana minor SS et al. DELVIN. 2013; 310(1 9): 2061- 2068 (http ://ed ucati on.Qu sherriDi Gracious Eloise. com/f aq/FA Q164) Not Available [facility] [address] [place], [address], 06/27/2023 05:33:20 06/26/19 24 06/27/2023 LIPID PANEL , STAND JAILENE chol/HDLC ratio 2.6 (calc ) <5.0 normal Not Available [facility] [address] [place], [address], 06/27/2023 05:33:20 06/26/19 24 06/27/2023 LIPID PANEL , STAND JAILENE non HDL cholesterol 86 mg/dL _(francesca c) <130 normal For patie nts with diabe harman plus 1 major ASCVD risk facto r, treat ing to a non-H DL-C goal of <100 mg/dL (LDL- C of <70 mg/dL ) is consi dered a thera peuti c optio n. Not Available [facility] [address] [place], [address], 06/27/2023 05:33:20 06/26/19 24 06/27/2023 COMPR EHENS MAHOGANY METAB OLIC PANEL glucose 89 mg/dL 65-99 normal Fasti ng refer ence inter cecilia Not Available [address], [address], 06/27/2023 05:33:22 06/26/19 24 06/27/2023 COMPR EHENS MAHOGANY METAB OLIC PANEL urea nitrogen (BUN) 16 mg/dL 7-25 normal Not Available [address], [address], 06/27/2023 05:33:22 06/26/19 24 06/27/2023 COMPR EHENS MAHOGANY METAB OLIC PANEL creatinine 0.83 mg/dL 0.50-1 .05 normal Not Available [address], [address], 06/27/2023 05:33:22 06/26/19 24 06/27/2023 COMPR EHENS MAHOGANY METAB OLIC PANEL eGFR 76 mL/mi n/1.7 3m2 > or = 60 normal Not Available [address], [address], 06/27/2023 05:33:22 06/26/19 24 06/27/2023 COMPR EHENS MAHOGANY METAB OLIC PANEL BUN/creatini ne ratio SEE NOTE: (calc ) 6-22 Not Repor joseluis: BUN and Creat inine are withi n refer ence range . Not Available [address], [address], 06/27/2023 05:33:22 06/26/19 24 06/27/2023 COMPR EHENS MAHOGANY METAB OLIC PANEL sodium 138 mmol/ L 135-14 6 normal Not Available [address], [address], 06/27/2023 05:33:22 06/26/19 24 06/27/2023 COMPR EHENS MAHOGANY METAB OLIC PANEL potassium 4.5 mmol/ L 3.5-5. 3 normal Not Available [address], [address], 06/27/2023 05:33:22 06/26/19 24 06/27/2023 COMPR EHENS MAHOGANY METAB OLIC PANEL chloride 105 mmol/ L 98-110 normal Not Available [address], [address], 06/27/2023 05:33:22 06/26/19 24 06/27/2023 COMPR EHENS MAHOGANY METAB OLIC PANEL carbon dioxide 28 mmol/ L 20-32 normal Not Available [address], [address], 06/27/2023 05:33:22 06/26/19 24 06/27/2023 COMPR EHENS MAHOGANY METAB OLIC PANEL calcium 9.2 mg/dL 8.6-10 .4 normal Not Available [address], [address], 06/27/2023 05:33:22 06/26/19 24 06/27/2023 COMPR EHENS MAHOGANY METAB OLIC PANEL protein, total 6.4 g/dL 6.1-8. 1 normal Not Available [address], [address], 06/27/2023 05:33:22 06/26/19 24 06/27/2023 COMPR EHENS MAHOGANY METAB OLIC PANEL albumin 4.0 g/dL 3.6-5. 1 normal Not Available [address], [address], 06/27/2023 05:33:22 06/26/19 24 06/27/2023 COMPR EHENS MAHOGANY METAB OLIC PANEL globulin 2.4 g/dL_ (calc ) 1.9-3. 7 normal Not Available [address], [address], 06/27/2023 05:33:22 06/26/19 24 06/27/2023 COMPR EHENS MAHOGANY METAB OLIC PANEL albumin/glob ulin ratio 1.7 (calc ) 1.0-2. 5 normal Not Available [address], [address], 06/27/2023 05:33:22 06/26/19 24 06/27/2023 COMPR EHENS MAHOGANY METAB OLIC PANEL bilirubin, total 0.5 mg/dL 0.2-1. 2 normal Not Available [address], [address], 06/27/2023 05:33:22 06/26/19 24 06/27/2023 COMPR EHENS MAHOGANY METAB OLIC PANEL alkaline phosphatase 73 U/L 37-153 normal Not Available [address], [address], 06/27/2023 05:33:22 06/26/19 24 06/27/2023 COMPR EHENS MAHOGANY METAB OLIC PANEL AST 27 U/L 10-35 normal Not Available [address], [address], 06/27/2023 05:33:22 06/26/19 24 06/27/2023 COMPR EHENS MAHOGANY METAB OLIC PANEL ALT 27 U/L 6-29 normal Not Available [address], [address], 06/27/2023 05:33:22 06/26/19 24 06/27/2023 CBC (INCL UDES DIFF/ PLT) white blood cell count 6.1 thous and/u L 3.8-10 .8 normal Not Available [address], [address], 06/27/2023 05:33:23 03/13/20 24 06/27/2023 CBC (INCL UDES DIFF/ PLT) red blood cell count 4.65 frances on/uL 3.80-5 .10 normal Not Available [address], [address], 06/27/2023 05:33:23 06/26/19 24 06/27/2023 CBC (INCL UDES DIFF/ PLT) hemoglobin 14.3 g/dL 11.7-1 5.5 normal Not Available [address], [address], 06/27/2023 05:33:23 06/26/19 24 06/27/2023 CBC (INCL UDES DIFF/ PLT) hematocrit 41.6 % 35.0-4 5.0 normal Not Available [address], [address], 06/27/2023 05:33:23 06/26/19 24 06/27/2023 CBC (INCL UDES DIFF/ PLT) MCV 89.5 fL 80.0-1 00.0 normal Not Available [address], [address], 06/27/2023 05:33:23 06/26/19 24 06/27/2023 CBC (INCL UDES DIFF/ PLT) MCH 30.8 pg 27.0-3 3.0 normal Not Available [address], [address], 06/27/2023 05:33:23 06/26/19 24 06/27/2023 CBC (INCL UDES DIFF/ PLT) MCHC 34.4 g/dL 32.0-3 6.0 normal Not Available [address], [address], 06/27/2023 05:33:23 06/26/19 24 06/27/2023 CBC (INCL UDES DIFF/ PLT) RDW 13.2 % 11.0-1 5.0 normal Not Available [address], [address], 06/27/2023 05:33:23 06/26/19 24 06/27/2023 CBC (INCL UDES DIFF/ PLT) platelet count 209 thous and/u L 140-40 0 normal Not Available [address], [address], 06/27/2023 05:33:23 06/26/19 24 06/27/2023 CBC (INCL UDES DIFF/ PLT) MPV 11.6 fL 7.5-12 .5 normal Not Available [address], [address], 06/27/2023 05:33:23 06/26/19 24 06/27/2023 CBC (INCL UDES DIFF/ PLT) absolute neutrophils 3184 cells /uL 1500-7 800 normal Not Available [address], [address], 06/27/2023 05:33:23 06/26/19 24 06/27/2023 CBC (INCL UDES DIFF/ PLT) absolute lymphocytes 2178 cells /uL 850-39 00 normal Not Available [address], [address], 06/27/2023 05:33:23 06/26/19 24 06/27/2023 CBC (INCL UDES DIFF/ PLT) absolute monocytes 610 cells /uL 200-95 0 normal Not Available [address], [address], 06/27/2023 05:33:23 06/26/19 24 06/27/2023 CBC (INCL UDES DIFF/ PLT) absolute eosinophils 61 cells /uL 15-500 normal Not Available [address], [address], 06/27/2023 05:33:23 06/26/19 24 06/27/2023 CBC (INCL UDES DIFF/ PLT) absolute basophils 67 cells /uL 0-200 normal Not Available [address], [address], 06/27/2023 05:33:23 06/26/19 24 06/27/2023 CBC (INCL UDES DIFF/ PLT) neutrophils 52.2 % normal Not Available [address], [address], 06/27/2023 05:33:23 06/26/19 24 06/27/2023 CBC (INCL UDES DIFF/ PLT) lymphocytes 35.7 % normal Not Available [address], [address], 06/27/2023 05:33:23 06/26/19 24 06/27/2023 CBC (INCL UDES DIFF/ PLT) monocytes 10.0 % normal Not Available [address], [address], 06/27/2023 05:33:23 06/26/19 24 06/27/2023 CBC (INCL UDES DIFF/ PLT) eosinophils 1.0 % normal Not Available [address], [address], 06/27/2023 05:33:23 06/26/19 24 06/27/2023 CBC (INCL UDES DIFF/ PLT) basophils 1.1 % normal Not Available [facility] [address], [address], 06/27/2023 05:33:23 06/26/19 24 06/27/2023 URINA LYSIS , COMPL ETE W/REF LEVON TO CULTU RE color YELLOW yellow normal Not Available [address], [address], 06/27/2023 05:33:24 06/26/19 24 06/27/2023 URINA LYSIS , COMPL ETE W/REF LEVON TO CULTU RE appearance CLEAR clear normal Not Available [address], [address], 06/27/2023 05:33:24 06/26/19 24 06/27/2023 URINA LYSIS , COMPL ETE W/REF LEVON TO CULTU RE specific gravity 1.013 1.001- 1.035 normal Not Available [address], [address], 06/27/2023 05:33:24 06/26/19 24 06/27/2023 URINA LYSIS , COMPL ETE W/REF LEVON TO CULTU RE pH 6.5 5.0-8. 0 normal Not Available [address], [address], 06/27/2023 05:33:24 06/26/19 24 06/27/2023 URINA LYSIS , COMPL ETE W/REF LEVON TO CULTU RE glucose NEGATI VE negati ve normal Not Available [address], [address], 06/27/2023 05:33:24 06/26/19 24 06/27/2023 URINA LYSIS , COMPL ETE W/REF LEVON TO CULTU RE bilirubin NEGATI VE negati ve normal Not Available [address], [address], 06/27/2023 05:33:24 06/26/19 24 06/27/2023 URINA LYSIS , COMPL ETE W/REF LEVON TO CULTU RE ketones NEGATI VE negati ve normal Not Available [address], [address], 06/27/2023 05:33:24 06/26/19 24 06/27/2023 URINA LYSIS , COMPL ETE W/REF LEVON TO CULTU RE occult blood NEGATI VE negati ve normal Not Available [facility] [place] [address], [place], [address], 06/27/2023 05:33:24 06/26/19 24 06/27/2023 URINA LYSIS , COMPL ETE W/REF LEVON TO CULTU RE protein NEGATI VE negati ve normal Not Available [address], [address], 06/27/2023 05:33:24 06/26/19 24 06/27/2023 URINA LYSIS , COMPL ETE W/REF LEVON TO CULTU RE nitrite NEGATI VE negati ve normal Not Available [address], [address], 06/27/2023 05:33:24 06/26/19 24 06/27/2023 URINA LYSIS , COMPL ETE W/REF LEVON TO CULTU RE leukocyte esterase NEGATI VE negati ve normal Not Available [address], [address], 06/27/2023 05:33:24 06/26/19 24 06/27/2023 URINA LYSIS , COMPL ETE W/REF LEVON TO CULTU RE WBC NONE SEEN /hpf < or = 5 normal Not Available [address], [address], 06/27/2023 05:33:24 06/26/19 24 06/27/2023 URINA LYSIS , COMPL ETE W/REF LEVON TO CULTU RE RBC 0-2 /hpf < or = 2 normal Not Available [address], [address], 06/27/2023 05:33:24 06/26/19 24 06/27/2023 URINA LYSIS , COMPL ETE W/REF LEVON TO CULTU RE squamous epithelial cells NONE SEEN /hpf < or = 5 normal Not Available [address], [address], 06/27/2023 05:33:24 06/26/19 24 06/27/2023 URINA LYSIS , COMPL ETE W/REF LEVON TO CULTU RE bacteria NONE SEEN /hpf none seen normal Not Available [address], [address], 06/27/2023 05:33:24 06/26/19 24 06/27/2023 URINA LYSIS , COMPL ETE W/REF LEVON TO CULTU RE hyaline cast NONE SEEN /lpf none seen normal Not Available [address], [address], 06/27/2023 05:33:24 06/26/19 24 06/27/2023 URINA LYSIS , COMPL ETE W/REF LEVON TO CULTU RE note This urine was tiffanie zed for the prese nce of WBC, RBC, bacte sruthi, casts , and other forme d eleme nts. Only those eleme nts seen were repor joseluis. Not Available [address], [address], 06/27/2023 05:33:24 06/26/19 24 06/27/2023 REFLE XIVE URINE CULTU RE reflexive urine culture NO CULTU RE INDIC ATED Not Available [address], [address], 06/27/2023 05:33:26 06/26/19 24 06/27/2023 TSH W/REF LEVON TO FT4 TSH w/reflex to FT4 1.79 mIU/L 0.40-4 .50 normal Not Available [address], [address], 06/27/2023 05:33:26 06/26/19 24 06/27/2023 VITAM IN D,25- OH,TO BAM,I A vitamin D,25-oh,tota l,ia 54 NG/mL 30-100 normal Vitam in D Statu s 25-OH Vitam in D: Defic iency : <20 ng/mL Insuf ficie ncy: 20 - 29 ng/mL Optim al: > or = 30 ng/mL For 25-OH Vitam in D testi ng on patie nts on D2-pettit pplem entat ion and patie nts for whom quant itati on of D2 and D3 fract ions is requi red, the [facility] Ass[facility] eD(TM ) 25-OH VIT D, (D2,D 3), LC/MS /MS is recom gloria d: order code 40424 (kelli ents >2yrs ). See Note 1 Note 1 For addit ional infor jolene ca refer to http: //[facility] yovani [employer].c om/fa q/FAQ 199 (This link is being provi ded for infor luis harvey/ pavithra choudhary purpo ses only. ) Not Available [facility] [address] [address] [place], [address], 06/27/2023 05:33:27 07/03/19 24 07/03/2023 LDCT, chest , for lung cance r scree forrest No observ ation record ed. [address], [address], 07/30/2023 15:33:46 07/03/19 24 07/03/2023 LDCT, chest , for lung cance r scree forrest No observ ation record ed. [address], [address], 07/30/2023 15:33:46 Result Notes None recorded. Problems Name Problem SNOMED Code Status Onset Date Resolution Date Notes Provider Name and Address Organization Details Recorded Time Otalgia 74669289 Active Not Available [facility] 3 11:52:26 Anxiety disorder 096282969 Active 2022 Not Available [facility] 3 11:52:27 Localized, primary osteoarthr itis of the shoulder region 904697181 Active 2021 Not Available [facility] 3 11:52:27 Feeling stressed 387744227 Completed Not Available [facility] 3 05:58:14 Fluid level behind tympanic membrane Completed Not Available [facility] 3 05:58:14 Flank pain 624654754 Active Not Available [facility] 3 11:52:27 Osteopenia 554152317 Active 2017 Not Available [facility] 3 11:52:27 Blood in urine 81116512 Completed Not Available [facility] 3 05:58:14 Vitamin D deficiency 07564800 Active 2019 Not Available [facility] 3 11:52:27 Goiter 1942272 Active 2022 Not Available [facility] 3 11:52:27 Hypertensi ve disorder 62282972 Active Not Available [facility] 3 11:52:27 Anxiety 56665280 Active Not Available [facility] 3 11:52:27 Hyperlipid emia 40911101 Active Not Available [facility] 3 11:52:27 Hypercalce steven 04048136 Active 2021 Not Available [facility] 3 11:52:27 Appendicit is 00498296 Completed Not Available [facility] 3 05:58:15 Posterior rhinorrhea 97625284 Active Not Available [facility] 3 11:52:27 Smoker 39945435 Active 2020 Not Available [facility] 3 11:52:27 Fatigue 44172585 Completed Not Available [facility] 3 05:58:15 Osteoporos is 03769400 Active 2022 Not Available [facility] 3 11:52:27 Pulmonary emphysema 02822644 Active 2023 El Sexton MD [address], [place] [address], [place], [address] , [facility] 4 15:36:22 Problem Notes None recorded. Procedures Surgical History Date Name Laterality Status Provider Name and Address Organization Details Recorded Time 05/14/19 25 Smoking Cessation completed El Sexton MD [address], [address], [place], [address], [place] [facility] 05/14/2024 11:33:02 02/12/20 24 Smoking Cessation completed El Sexton MD [address], [address], [place], [address], [place] [facility] 02/12/2024 12:42:03 10/29/19 24 Smoking Cessation completed El Sexton MD [address], [address], [place], [address], [place] [facility] 10/29/2023 15:35:49 07/30/19 24 Medicare Wellness CPT Code, Initial completed Bárbara Dong RN [place] [facility] 07/30/2023 15:04:30 02/14/20 23 Smoking Cessation completed El Sexton MD [address], [address], [place], [address], [place] [facility] 02/13/2023 10:49:10 09/14/19 23 Smoking Cessation completed El Sexton MD [address], [address], [place], [address], [place] [facility] 09/13/2022 10:50:29 07/27/19 23 Smoking Cessation completed El Sexton MD [address], [address], [place], [address], [place] [facility] 07/26/2022 15:05:43 04/15/19 21 Date of Last Colonoscopy completed Not Available [facility] 06/13/2022 05:53:22 Tubal Ligation completed Not Available [facility] 06/13/2022 05:53:24 Appendectomy completed Not Available [facility] 06/13/2022 05:53:24 Imaging Results Imaging Date Name Status LastModified by Organiz ation Details LastModified Time 07/03/2023 LDCT, chest, for lung cancer screening completed [id number], [place], [address], 07/30/2023 15:33:46 07/03/2023 LDCT, chest, for lung cancer screening completed [id number] [facility] [address], [place], [address], 07/30/2023 15:33:46 Procedure Notes None recorded. Medical Equipment None Reported. Allergies No known drug allergies Medications Name Sig Start Date Stop Date Status Note LastModified by Organization Details LastModified Time atorvastati n 40 mg tablet TAKE 1 TABLET BY MOUTH EVERY DAY AT BEDTIME active Not Available Not Available No t Available hydrocodone 7.5 mg-ibuprofe n 200 mg tablet active Not Available Not Available Not Available bupropion HCl SR 150 mg tablet,12 hr sustained-r elease Take 1 tablet twice a day by oral route for 90 days. active Not Available Not Available No t Available atorvastati n 20 mg tablet TAKE 1 TABLET BY MOUTH EVERY NIGHT AT BEDTIME 02/13 completed Not Available Not Available Not Available atorvastati n 10 mg tablet TK 1 T PO QD 10/25 completed Not Available Not Available Not Available lisinopril 20 mg-hydrochl orothiazide 12.5 mg tablet TK 1 T PO QAM active Not Available Not Available No t Available metoprolol succinate ER 50 mg tablet,exte nded release 24 hr TAKE 1 TABLET BY MOUTH EVERY DAY DIRECTED active Not Available Not Available No t Available lisinopril 20 mg tablet TAKE 1 TABLET BY MOUTH EVERY DAY DIRECTED QAM 09/13 completed Not Available Not Available Not Available prednisone 20 mg tablet 08/25 completed Not Available Not Available Not Available alendronate 70 mg tablet Take 1 tablet every week by oral route as directed. 2024 active Not Available Not Available Not Avai lable amlodipine 5 mg tablet TAKE 1 TABLET BY MOUTH EVERY DAY 10/02 completed Not Available Not Available Not Available ciprofloxac in 500 mg tablet Take 1 tablet every 12 hours by oral route. active Not Available Not Available No t Available sulfamethox azole 800 mg-trimetho prim 160 mg tablet active Not Available Not Available Not Available peg-electro lyte solution 420 gram oral solution 10/25 completed Not Available Not Available Not Available amoxicillin 875 mg tablet TAKE 1 TABLET BY MOUTH EVERY 12 HOURS 03/15 completed Not Available Not Available Not Available lorazepam 0.5 mg tablet TAKE 1 TABLET BY MOUTH ONCE DAILY NEEDED active Not Available Not Available No t Available methocarbam ol 750 mg tablet Take 1 tablet every day by oral route at bedtime for 10 days. active Not Available Not Available No t Available lisinopril 10 mg tablet TAKE 1 TABLET BY MOUTH EVERY DAY 07/26 completed Not Available Not Available Not Available nicotine 21 mg/24 hr daily transdermal patch APPLY ONE PATCH TO SKIN ONCE DAILY FOR 90 DAYS 07/26 completed Not Available Not Available Not Available lisinopril 30 mg tablet TAKE 1 TABLET BY MOUTH EVERY DAY DIRECTED 02/13 completed Not Available Not Available Not Available lisinopril 20 mg-hydrochl orothiazide 25 mg tablet active Not Available Not Available Not Available metoprolol succinate ER 25 mg tablet,exte nded release 24 hr TAKE 1 TABLET BY MOUTH EVERY DAY AT BEDTIME 05/14 completed Not Available Not Available Not Available ergocalcife rol (vitamin D2) 1,250 mcg (50,000 unit) capsule TAKE 1 CAPSULE BY MOUTH EVERY WEEK active Not Available Not Available No t Available cefuroxime axetil 500 mg tablet 12/06 completed Not Available Not Available Not Available methylpredn isolone 4 mg tablets in a dose pack FOLLOW PACKAGE DIRECTION S 02/15 completed Not Available Not Available Not Available lisinopril 40 mg tablet TAKE 1 TABLET BY MOUTH EVERY DAY DIRECTED active Not Available Not Available No t Available fluticasone propionate 50 mcg/actuati on nasal spray,suspe nsion INHALE 2 SPRAYS INTO EACH NOSTRIL QAM active Not Available Not Available No t Available sertraline 50 mg tablet Take 1 tablet every day by oral route in the morning for 90 days. 06/18 completed Not Available Not Available Not Available ipratropium bromide 21 mcg (0.03 %) nasal spray 10/25 completed Not Available Not Available Not Available amoxicillin 875 mg-potassiu m clavulanate 125 mg tablet 08/25 completed Not Available Not Available Not Available nicotine 7 mg/24 hr daily transdermal patch Apply 1 patch every day by transderm al route as directed for 30 days. 06/18 completed Not Available Not Available Not Available neomycin-po lymyxin-hyd rocort 3.5 mg-10,000 unit/mL-1 % ear drops,susp INSTILL 4 DROPS INTO AFFECTED EAR(S) BY OTIC ROUTE 3 TIMES PER DAY FOR 7 DAYS active Not Available Not Available No t Available escitalopra m 10 mg tablet Take 1 tablet every day by oral route as directed for 30 days. active Not Available Not Available No t Available bupropion HCl XL 150 mg 24 hr tablet, extended release Take 1 tablet every day by oral route as directed for 90 days. 2024 active Not Available Not Available Not Avai lable escitalopra m 5 mg tablet Take 1 tablet every day by oral route in the morning for 90 days. 2023 active Not Available Not Available Not Avai lable varenicline tartrate 0.5 mg tablet TAKE 1 TABLET BY MOUTH TWICE DAILY DIRECTED active Not Available Not Available No t Available hydrochloro thiazide 12.5 mg tablet Take 1 tablet every day by oral route as directed for 90 days. active Not Available Not Available No t Available naproxen 500 mg-esomepra zole 20 mg tablet,imme diate and delay release TAKE 1 TABLET BY MOUTH TWICE DAILY WITH MEALS FOR 10 DAYS 10/25 completed Not Available Not Available Not Available Suprep Bowel Prep Kit 17.5 gram-3.13 gram-1.6 gram oral solution DILUTE AND DRINK FULL AMOUNT BY MOUTH EARLY EVENING BEFORE AND NEXT MORNING AT LEAST 2 HOURS BEFORE PROCEDURE . FOLLOW WITH 960 ML WATER 05/09 completed Not Available Not Available Not Available Chantix Continuing Month Box 1 mg tablet FPD 08/26 completed Not Available Not Available Not Available Fluvirin 5060-9577 (PF) 45 mcg(15 mcg x3)/0.5 mL intramuscul ar syringe ADM 0.5ML IM UTD 08/26 completed Not Available Not Available Not Available Flucelvax Quad (PF) 60 mcg (15 mcg x 4)/0.5 mL IM syringe ADM 0.5ML IM UTD 08/25 completed Not Available Not Available Not Available ID NOW COVID-19 Test Kit TEST DIRECTED 10/02 completed Not Available Not Available Not Available Vitals Date Recorded Body height Body mass index (BMI) Body weight Body temperature Respiratory rate Heart rate Oxygen saturation Oxygen saturation in Arterial blood by Pulse oximetry Pain severity - 0-10 verbal numeric rating [Score] - Reported Systolic blood pressure Diastolic blood pressure Provider Name and Address Organization Details Last Updated DateTime 4 160.02 cm 21.5 kg/m2 69390.4 8 g 96.6 [degF] 20 /min 66 /min 99 % 99 % 0 180 mm[Hg] 100 mm[Hg] Joseline Daly RN [facility] [employer] [facility] 4 12:31:51 Date Recorded Systolic blood pressure Diastolic blood pressure Provider Name and Address Organization Details Last Updated DateTime 06/19/2023 134 mm[Hg] 78 mm[Hg] El Sexton MD [address] [place] [address], [address], [facility] [employer] 06/19/2023 12:44:26 Date Recorded Body height Body mass index (BMI) Body weight Body temperature Heart rate Respiratory rate Oxygen saturation Oxygen saturation in Arterial blood by Pulse oximetry Systolic blood pressure Diastolic blood pressure Provider Name and Address Organization Details Last Updated DateTime 4 160.02 cm 20.7 kg/m2 33517.0 1 g 97.9 [degF] 78 /min 20 /min 99 % 99 % 128 mm[Hg] 70 mm[Hg] Timothy Schulte [facility] 4 15:27:09 Date Recorded Pain severity - 0-10 verbal numeric rating [Score] - Reported Provider Name and Address Organization Details Last Updated DateTime 07/30/2023 Dylan Dogn RN [facility] [employer] 07/30/2023 15:56:12 Date Recorded Body height Body mass index (BMI) Body weight Body temperature Heart rate Respiratory rate Oxygen saturation Oxygen saturation in Arterial blood by Pulse oximetry Provider Name and Address Organization Details Last Updated DateTime 4 160.02 cm 21.8 kg/m2 83133.5 6 g 97.9 [degF] 78 /min 16 /min 99 % 99 % Timothy Schulte [facility] 4 15:27:13 Date Recorded Systolic blood pressure Diastolic blood pressure Provider Name and Address Organization Details Last Updated DateTime 10/29/2023 136 mm[Hg] 80 mm[Hg] El Sexton MD [address], [address], [place], [address], [place] [employer] [facility] [employer] [facility] 10/29/2023 15:28:33 Date Recorded Body height Body mass index (BMI) Body weight Body temperature Heart rate Provider Name and Address Organization Details Last Updated DateTime 02/12/2024 160.02 cm 21.7 kg/m2 87764.67 g 97.9 [degF] 62 /min Aicha Vidal RN [facility] [employer] [facility] 11:58:25 Date Recorded Oxygen saturation Oxygen saturation in Arterial blood by Pulse oximetry Systolic blood pressure Diastolic blood pressure Provider Name and Address Organization Details Last Updated DateTime 02/12/2024 97 % 97 % 140 mm[Hg] 70 mm[Hg] El Sexton MD [address], [place], [address], [place] [employer] [facility] 12:07:58 Date Recorded Body height Body mass index (BMI) Body weight Body temperature Oxygen saturation Oxygen saturation in Arterial blood by Pulse oximetry Heart rate Provider Name and Address Organization Details Last Updated DateTime 160.02 cm 22.2 kg/m2 87918.1 g 96.9 [degF] 96 % 96 % 81 /min Aicha Vidal RN [facility] 5 11:59:31 Date Recorded Systolic blood pressure Diastolic blood pressure Provider Name and Address Organization Details Last Updated DateTime 05/14/2024 160 mm[Hg] 100 mm[Hg] El Sexton MD [address] [facility], [address], [place], [address], [place] [employer] [facility] 05/14/2024 12:31:50 Social History Question Answer Notes LastModified by Organizat ion Details LastModified Time Tobacco Smoking Status Current Every Day Smoker Jacqui philippe, [facility] 09/13/2022 10:52:39 Do You Have An Advance Directive? Yes [id number] Information not available 06/13/2022 What Is Your Level Of Alcohol Consumption? None [email or web address] Information not available 06/13/2022 Are You Blind Or Do You Have Difficulty Seeing? No Wears 1 Contact In Right Eye Information not available 09/13/2022 What Is Your Level Of Caffeine Consumption? Heavy [id number] Information not available 06/13/2022 How Much Tobacco Do You Chew? None [id number] Information not available 06/13/2022 What Is Your Code Status? Full Code Information not available 09/13/2022 Are You Deaf Or Do You Have Serious Difficulty Hearing? No Information not available 09/13/2022 What Type Of Diet Are You Following? REGULAR [id number] Information not available 06/13/2022 Which Illicit Or Recreational Drugs Have You Used? None Information not available 09/13/2022 Do You Or Have You Ever Used E-cigarettes Or Vape? 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 Yes POA: Luigi Randledanitza Information not available 09/13/2022 What Was The Date Of Your Most Recent Tobacco Screening? 07/30/2023 Information not available 07/30/2023 At What Age Did You Start Smoking Tobacco? 21 Information not available 09/13/2022 Do You Or Have You Ever Used Smokeless Tobacco? Former Smokeless Tobacco User [id number] Information not available 06/13/2022 How Much Tobacco Do You Smoke? 1 PPD [id number] Information not available 06/13/2022 Do You Feel Stressed (tense, Restless, Nervous, Or Anxious, Or Unable To Sleep At Night)? [id number] Anxiety From Coming To The Drs [email or web address] Information not available 06/19/2023 Do You Have Any Dietary Restrictions? No Information not available 09/13/2022 Sex: Unknown Functional Status Question Answer Note LastModified by Organizat ion Details LastModified Time Do you have difficulty walking or climbing stairs? No Information not available 09/13/2022 Do you have transportation difficulties? No Information not available 09/13/2022 Are you able to walk? YESWOREST Information not available 09/13/2022 Do you have difficulty doing errands alone? No Information not available 09/13/2022 Are you able to care for yourself? Yes Information n ot available 09/13/2022 Do you have difficulty dressing or bathing? No Information not available 09/13/2022 What is your exercise level? Moderate [id number] Information not available 06/13/2022 Mental Status Question Answer Note LastModified by Organization D etails LastModified Time Do you have difficulty concentrating, remembering or making decisions? No Information no t available 09/13/2022 Family History Relationship Description Onset Age of this Age Resolved Age Notes LastModified by Organization Details LastModified Time Father Cardiopulmon eulalia bypass operation [id number] Not available 06/13/2022 05:53:25 Medical History Condition Response BRONCHITIS Y URINARY/BLADDER/KIDNEY PROBLEMS Y PNEUMONIA Y HIGH CHOLESTEROL / HYPERLIPIDEMIA Y Gynecological History Statement/Question Response Date of Last Mammogram 11/27/2021 Date of Last Colonoscopy 04/15/2020 Date of LMP Obstetrics History GPAL:G 0 P 0 0 0 0 Immunizations Vaccine Type Date Status Note Provider Nam e and Address Organization Details Recorded Time influenza, unspecified formulation 3 completed El Sexton MD [address], [address], [place], [address], [employer] 02/13/2023 11:36:07 Influenza, high-dose, quadrivalent, PF 3 completed El Sexton MD [address], [address], [place], [address], [employer] 02/13/2023 11:36:07 COVID-19, mRNA, LNP-S, PF, 50 mcg/0.5 mL 3 completed El Sexton MD [address], [place], [address], [employer] 02/13/2023 11:36:07 Influenza, split virus, trivalent, preservative 5 completed El Sexton MD [address], [address], [place], [address], [facility] [employer] [facility] 02/13/2023 11:36:07 Influenza, split virus, quadrivalent, preservative 1 completed El Sexton MD [address], [address], [place], [address], [facility] [employer] [facility] 02/13/2023 11:36:07 Influenza, split virus, quadrivalent, preservative 0 completed El Sexton MD [address], [address], [place], [address], [employer] [facility] [employer] [facility] 02/13/2023 11:36:07 pneumococcal polysaccharide PPV23 0 completed El Sexton MD [address], [address], [place], [address], [facility] [employer] 02/13/2023 11:36:07 Influenza, split virus, quadrivalent, preservative 9 completed El Sexton MD [address], [address], [place], [address], [facility] [employer] [facility] 02/13/2023 11:36:07 Influenza, split virus, trivalent, preservative 4 completed El Sexton MD [address], [address], [place], [address], [facility] [employer] [facility] 02/13/2023 11:36:07 Influenza, split virus, trivalent, preservative 3 completed El Sexton MD [address], [address], [place], [address], [facility] [employer] [facility] 02/13/2023 11:36:07 Influenza, split virus, quadrivalent, PF 6 completed El Sexton MD [address], [address], [place], [address] 02/13/2023 11:36:07 Past Encounters Encounter ID Performer Location Encounter Start Date Encounter Closed Date Diagnosis/Indication Diagnosis SNOMED-CT Code Diagnosis ICD10 Code Diagnosis Note [id number] [facility] [place] [address] [facility] [place] [address] 10/25/2020 00:00:00 10/25/2020 08:54:36 [id number] [facility] [place] [address] [place] [address] [place] [address] 03/15/2021 00:00:00 03/15/2021 13:51:35 [id number] [facility] [place] [address] [place] [address] [place] [address] 05/09/2021 00:00:00 05/09/2021 09:53:29 [id number] [facility] [place] [address] [place] [address] [place] [address] 10/02/2021 00:00:00 10/02/2021 10:18:58 [id number] [facility] [place] [address] [place] [address] [place] [address] 12/07/2021 00:00:00 12/07/2021 10:19:13 [id number] [facility] [place] [address] [place] [address] [place] [address] 02/15/2022 00:00:00 02/15/2022 14:21:51 [id number] [facility] [place] [address] [place] [address] 06/11/2022 00:00:00 06/11/2022 10:21:44 [id number] El Sexton MD [facility] [place] [address] [facility] [place] [address] 06/27/2022 10:28:57 06/27/2022 11:20:12 Hypertensive disorder 61313450 I10 Hyperlipidemia 91167273 E78.5 Smoker 25192731 F17.200 Anxiety disorder 06 F41.9 [id number] El Sexton MD [address] [address] 07/26/2022 14:52:31 07/26/2022 15:19:10 Hypertensive disorder 08112650 I10 Smoker 39690125 F17.200 Anxiety disorder F41.9 [id number] El Sexton MD [address] [address] 09/13/2022 10:50:06 09/13/2022 11:14:43 Anxiety disorder 430217201 F41.9 Hypertensive disorder 38 302028 I10 Smoker 37398456 F17.200 Hyperlipidemia 89822909 E78.5 Osteoporosis 59914008 M8 1.0 [id number] El Sexton MD [address] [address] 02/13/2023 10:46:30 02/13/2023 11:59:38 Hyperlipidemia 81864605 E78.5 Hypertensive disorder 38 874339 I10 Anxiety disorder F41.9 Osteoporosis 29748902 M8 1.0 Smoker 07658454 F17.506 [id number] El Sexton MD [address] [address] 03/13/2023 10:11:14 03/13/2023 10:33:17 Hyperlipidemia 37120602 E78.5 Hypertensive disorder 38 503317 I10 Anxiety disorder 06 F41.9 Osteoporosis 13597850 M8 1.0 Smoker 49642281 F17.211 [id number] El Sexton MD [address] [address] 06/19/2023 12:16:03 06/19/2023 13:57:00 Hypertensive disorder 53887819 I10 Anxiety disorder 06 F41.9 Hyperlipidemia 41701397 E78.5 Osteoporosis 24410325 M8 1.0 Smoker 11454864 F17.200 Diabetes m ellitus screening 423905644 Z13.1 Vitamin D deficiency 347 62483 E55.9 [id number] El Sexton MD [address] [address] 07/30/2023 15:18:51 07/30/2023 16:34:56 Screening for disorder 582286279 Z13.9 Hypertensive disorder 38 115469 I10 Anxiety disorder 7770131 06 F41.9 Hyperlipidemia 87877102 E78.5 Osteoporosis 53625597 M8 1.0 Smoker 88184800 F17.200 Vitamin D deficiency 347 53802 E55.9 Improved [id number] El Sexton MD [address] [address] 10/29/2023 15:21:30 10/29/2023 15:53:19 Hypertensive disorder 12378206 I10 Anxiety disorder 06 F41.9 Hyperlipidemia 77166012 E78.5 Osteoporosis 53181259 M8 1.0 Smoker 57533568 F17.200 Vitamin D deficiency 347 10208 E55.9 Improved Pulmonary emphysema 8743 3001 J43.9 [id number] El Sexton MD [address] [address] 02/12/2024 11:48:28 02/12/2024 13:00:14 Anxiety disorder 852402252 F41.9 Hyperlipidemia 60634288 E78.5 Hypertensive disorder 38 578662 I10 Osteoporosis 47276440 M8 1.0 Smoker 43367305 F17.200 Vitamin D deficiency 347 89084 E55.9 Improved Pulmonary emphysema 8743 3001 J43.9 [id number] El Sexton MD [address] [address] 05/14/2024 11:50:37 05/14/2024 12:22:27 Anxiety disorder 446632462 F41.9 Hyperlipidemia 10034641 E78.5 Hypertensive disorder 38 549081 I10 Osteoporosis 63545434 M8 1.0 Vitamin D deficiency 347 35818 E55.9 Improved Smoker 23553831 F17.200 Pulmonary emphysema 8743 3001 J43.9 Health Concerns Section Related Observation LastModified by Organization Detai ls LastModified Time None Recorded Concern Status LastModified by Organization Details LastModified Time None Recorded Advance Directives Directive Y: Payers Encounter Date Sequence Insurance Name Policy Number Policy Mejias Covered Member ID Mejias Member ID Guarantor Name 06/19/2023 1 [place] Lluvia Cook Deborah [id number] 3 Lluvia Cook Deborah 06/19/2023 2 [employer] - OPEN ACCESS PLUS [id number] Lluvia Cook Deborah [id number] Lluvia Joey Deborah 07/30/2023 1 [place] Lluvia Cook Deborah [id number] 3 Lluvia A Deborah 07/30/2023 2 [employer] - OPEN ACCESS PLUS [id number] Lluvia Cook Deborah [id number] Lluvia Joey Deborah 10/29/2023 1 [place] Lluvia Cook Deborah [id number] 3 Lluvia A Deborah 10/29/2023 2 [employer] - OPEN ACCESS PLUS [id number] Lluvai Cook Deborah [id number] Lluvia A Deborah 02/12/2024 1 [place] Lluvia Cook Deborah [id number] 3 Lluvia A Deborah 02/12/2024 2 [employer] - OPEN ACCESS PLUS [id number] Lluvia Cook Deborah [id number] 1 Lluvia Joey Deborah 05/14/2024 1 [place] Lluvia Cook Deborah [id number] 3 Lluvia A Deborah 05/14/2024 2 [employer] - OPEN ACCESS PLUS [id number] Lluvia Cook Deborah [id number] 1 Lluvia Cook Deborah Notes Date Note Type Note Provider Name and Address Organization Details Recorded Time 06/19/2023 text/html Pt is here for her annual exam. Doing overall better. Denies any problem with meds. Denies any new concern. Pt's dog is not doing well and she is under some stress due to that. Pt is not checking her BP at home yet.She has anxiety is improved overall. Pt denies any depression/mood swings/SI/HI. Pt has not seen a counsellor yet. El Sexton MD [address], [place], [address], [facility] [employer] [facility] 06/19/2023 12:52:50 07/30/2023 text/html Pt is here for f/u on her annual exam and MAWV. Doing overall better. Denies any problem with meds. Denies any new concern. Pt's dog is not doing well and she is under some stress due to that. Pt is not checking her BP at home yet.She has anxiety is improved overall. Pt denies any depression/mood swings/SI/HI. Pt has not seen a counsellor yet. El Sexton MD [address], [place], [address], [facility] 07/30/2023 16:31:07 10/29/2023 text/html Pt is here for f/u on her meds and chronic conditions. Doing overall better. Denies any problem with meds. Denies any new concern. Pt's dog is not doing well and she is under some stress due to that. Pt is not checking her BP at home yet.She has anxiety is improved overall. Pt denies any depression/mood swings/SI/HI. Pt has not seen a counsellor yet. El Sexton MD [address], [place], [address], [facility] 10/29/2023 15:50:01 02/12/2024 text/html Pt is here for f/u on her meds and chronic conditions. Doing overall better. Denies any problem with meds. Denies any new concern. Pt's dog is not doing well and she is under some stress due to that. Pt is not checking her BP at home yet.She has anxiety is improved overall. Pt denies any depression/mood swings/SI/HI. Pt has not seen a counsellor yet. Pt has not seen [facility] yet. El Sexton MD [address], [place], [address], [facility] 02/12/2024 12:42:47 05/14/2024 text/html Pt is here for f/u on her meds and chronic conditions. Doing overall better. Denies any problem with meds. Denies any new concern. Pt's dog is not doing well and she is under some stress due to that. Pt is not checking her BP at home yet.She has anxiety is improved overall. Pt denies any depression/mood swings/SI/HI. Pt has not seen a counsellor yet. Pt has not seen [facility] yet. El Sexton MD [address] [place] [address], [facility] [address], [place], [address], [facility] 05/14/2024 12:33:35 OBGyn Episode No OBEpisode recorded.
--- OUTSIDE RECORDS SUMMARY | 2024-06-07 12:20 | XMS_ITS | Continuity of Care Document ---
Author Organization [facility] Address [address] [place] [address] Phone Care Team Providers Care Relay Tester Helper Name Role Phone Schuler OD, Blu Unavailable Unavailable Advance Directives Directive Yes / No Effective Date File Name No Information Encounters Encounter Description Practice Location Reason(s) For Visit Diagnoses Date Provider Providers Copied on Encounter [facility], [address], [place], [place], [address], [place] tel:[phone] [facility] No Information [phone] Schuler OD Blu. [address] , [address], [place], [address], [place]. tel:[phone] Family History Family Member Type Diagnosis Age At Onset No Information Payers Payer name Insurance type Covered republican ID Authoriza tion(s) No Information Social History Type Description Quantity Date Captured Comments Sex Female Smoking Status No Information Chief Complaint And Reason For Visit No Information Reason For Referral Reason For Referral No Information History Of Present Illness Encounter Date Complaint History Of Prese nt Illness No Information Functional Status Date Functional Assessmen t No Information Instructions Date Instruction Additional Infor mation No Information Assessments Type Assessment Date No Information Patient Care Teams Name Effective Dates (start - stop) Status Members No Information
--- OUTSIDE RECORDS SUMMARY | 2024-06-07 12:20 | XMS_ITS | Encounter Summary ---
Author Organization [facility] Address 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
--- OUTSIDE RECORDS SUMMARY | 2024-06-07 12:20 | XMS_ITS | Encounter Summary ---
Author Organization [employer] Address 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
--- OUTSIDE RECORDS SUMMARY | 2024-06-07 12:21 | XMS_ITS | Encounter Summary ---
Author Organization [facility] Address 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 Gender Identity Not on file Sexual Orientation Not on file documented as of this encounter Plan of Treatment Not on file documented as of this encounter Procedures Procedure Name Priority Date/Time Associated Diagnosis Comments MAMMO SCREENING BILAT Routine 01/30/2008 3:54 PM CDT documented in this encounter Results * MAMMO SCREENING BILAT (01/30/2008 3:54 PM CDT) Anatomical Region Laterality Modality Breast Bilateral Other 01/30/2008 3:54 PM CDT Narrative 02/02/2008 2:50 PM CDT [address] [place], [place] [address] Admit Date: 01/30/2008 LLUVIA WEBER Sex: F Admit Prov: YONI, MAURILIO Date: 1955 Primary Care Prov: MAURILIO PISANO CMRN: [id number] Room: [facility] SSN: [id number] [facility] Ordering Prov: MAURILIO PISANO Accession Number: [id number] Interpretation BILATERAL SCREENING MAMMOGRAM 01/30/2008 Reason for Examination: Routine screening study. Findings: The parenchyma is moderately dense bilaterally. There is no mass, malignant calcification, lymphadenopathy or other sign of malignancy. There has been no change since 01/2006. Summary: No mammographic evidence of malignancy. Overall assessment: BIRADS category 1 - Negative. Assessment BIRADS: 1-Negative Recommendation: Normal interval follow-up Dictated by: ACE ADDISON Electronically signed by: ACE ADDISON 02/02/2008 14:50 Transcribed: 02/02/2008 14:25 SDJ Procedure Note Ace Addison MD - 02/02/2008 [facility] [address] [place], [place] [address] Admit Date: 01/30/2008 LLUVIA WEBER Sex: F Admit Prov: MAURILIO PISANO Date:1955 Primary Care Prov: JAIME PISANOORES CMRN: [id number] Room: [facility] SSN: [id number] IMAGING SERVICES Ordering Prov: MAURILIO PISANO Interpretation BILATERAL SCREENING MAMMOGRAM 01/30/2008 Reason for Examination: Routine screening study. Findings: The parenchyma is moderately dense bilaterally. There isno mass, malignant calcification, lymphadenopathy or other sign ofmalignancy. There has been no change since 01/2006. Summary: No mammographic evidence of malignancy. Overall assessment: BIRADS category 1 - Negative. Assessment BIRADS: 1-Negative Recommendation: Normal interval follow-up Dictated by: ACE ADDISON Electronically signed by: ACE ADDISON 02/02/2008 14:50 Transcribed: 02/02/2008 14:25 SDJ Maurilio Pisano MD MAMMO ORDERABLES Final Resul t documented in this encounter Visit Diagnoses Diagnosis Other screening mammogram documented in this encounter Care Teams Boiler Assistant Operator Relationship Specialty Start Date End Date Maurilio Pisano MD [address] [address] PCP - General 04/01/15 documented as of this encounter
--- OUTSIDE RECORDS SUMMARY | 2024-06-07 12:21 | XMS_ITS | Encounter Summary ---
Author Organization [employer] Address 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 [place] [address] PCP - General 04/01/15 documented as of this encounter
--- OUTSIDE RECORDS SUMMARY | 2024-06-07 12:21 | XMS_ITS | Clinical Summary ---
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 Gender Identity Not on file Sexual Orientation Not on file Occupation Industry Job Start Date Job End Date Not on file Not on file Not on file Not on file Plan of Treatment Health Maintenance Due Date Last Done Comments DTAP/TDAP/TD VACCINES (1 - Tdap) 1973 COLORECTAL SCREENING 1999 Colorectal Cancer Screening 1999 FIT-DNA Q 3 years 1999 FIT/FOBT Q 1 year 1999 Flex Sig/CT Colonography Q 5 years 1999 PNEUMOCOCCAL VACCINE 65+ YEA RS (1 of 1 - PCV) 02/09/2004 ZOSTER VACCINE (1 of 2) 02/09/2004 BREAST CANCER SCREENING 01/27/2016 01/27/20 15, 01/22/2014, 03/02/2013, Additional history exists OSTEOPOROSIS SCREENING 2019 INFLUENZA VACCINE (#1) 2023 RSV VACCINE (60+ or ) (1 - 1-dose 75+ series) 2029 Procedures Procedure Name Priority Date/Time Associated Diagnosis Comments MAMMO SCREEN BILAT W OR WO CAD Routine 01/26/2015 11:00 AM CDT Visit for screening mammogram from Last 3 Months or Most Recently Relevant to Health Maintenance Results * MAMMO DIGITAL SCREEN BILAT (01/26/2015 11:00 AM CDT) Anatomical Region Laterality Modality Breast Bilateral Mammography Narrative 01/27/2015 9:48 AM CDT Bilateral digital screening mammogram with computer assisted diagnosis History: Annual screening exam. Findings: A bilateral screening mammogram was performed. Comparison is made to : 01/22/2014, 03/02/2013, 02/28/2012 There are scattered fibroglandular densities. No new masses, suspicious calcifications, or areas of asymmetry or distortion are identified. CAD was utilized. Impression: Negative screening mammogram. Recommendation: Routine annual follow-up Overall Assessment: Birads Category 1: Negative us Kristi Pisano MD MAMMO ORDERABLES Final Resul t from Last 3 Months or Most Recently Relevant to Health Maintenance Insurance [employer] OPEN ACCESS HMO Care Teams Clinical Courier Relationship Specialty Start Date End Date Kristi Pisano MD [address] [address] PCP - General 04/01/15
[2024-06-07 12:35] VITALS: BP 152/103; PULSE 84; RESP 14; TEMP 36.6; O2SAT 100
--- NOTE | 2024-06-07 14:51 | ED.NEUROSD ---
HPI - Neuro Symptoms/Deficit General Chief Complaint: Neuro Symptoms/Deficit <Erika Esquivel PA-C - Last Filed: 06/08/24 02:53> Stated Complaint: right sided facial numbness, woke w/ sx's <Erika Esquivel PA-C - Last Filed: 06/08/24 02:53> Time Seen by Provider: 06/07/24 14:51 <Erika Esquivel PA-C - Last Filed: 06/08/24 02:53> Focused HPI: This is a 69 year old female that presents to the ER for tingling to the right side of the face. This started when she woke up this morning. She feels like she just had a numbing medication at the dentist. She additionally endorses some right elbow discomfort ongoing since yesterday. No other numbness, weakness, rash. GENERAL: Well-appearing, well-nourished, and in no acute distress. HEAD: Normocephalic, atraumatic. CHEST: Clear to auscultation. ?No respiratory distress. HEART: Regular rate and rhythm.? NEURO: ?Alert and oriented x3. Patient screened in triage and initial orders placed.? ?Additional care and disposition to be based upon?diagnostic testing and treatment. <Erika Esquivel PA-C - Last Filed: 06/08/24 02:53> History of Present Illness HPI Narrative: I agree with the above HPI <Timothy Lopez MD - Last Filed: 06/07/24 19:15> Related Data Home Medications: Home Medications ?Medication ?Instructions ?Recorded ?Confirmed ?Last Taken ?Type atorvastatin 20 mg tablet 20 mg PO DAILY 05/17/19 04/11/22 09/16/19 History lorazepam 0.5 mg tablet 0.5 mg PO PRN PRN Anxiety 09/11/19 04/11/22 09/16/19 History lisinopril 10 mg tablet 10 mg PO DAILY 02/28/22 04/11/22 Unknown History <ALLA Gaston Last Filed: 06/08/24 02:53> Allergies/Adverse Reactions: Allergies Allergy/AdvReac Type Severity Reaction Status Date / Time No Known Allergies Allergy Unknown Verified 06/07/24 12:38 <ALLA Gaston Last Filed: 06/08/24 02:53> Review of Systems Review of Systems: All systems reviewed & are unremarkable except as noted in HPI and below <Timothy Lopez MD - Last Filed: 06/07/24 19:15> [facility] Past Medical History Medical History: Medical History Anxiety COPD (chronic obstructive pulmonary disease) Hyperlipidemia Hypertension <Erika Esquivel PA-C - Last Filed: 06/08/24 02:53> Surgical History Surgical History: Surgical History Status post appendectomy (~2014) Status post tonsillectomy and adenoidectomy <Erika Esquivel PA-C - Last Filed: 06/08/24 02:53> Social History Social History: Social History Smoking packs per day: 1 Smoking cigarettes per day: 20.0 Years smoked: 30 Smoking pack-years: 30.00 Smoking status: Current every day smoker Tobacco type: cigarettes Lack of Transportation: No Lack of Food: Never True Current Housing: I Have Housing Concerned About Future Housing: No Difficulty Paying Gas/Electric Bills: No Difficulty Paying for Meds: No Currently Unemployed: No Education: High School Diploma/GED Difficulty w/ Childcare or Family Care: No Living arrangements: with family Spiritual care concerns: No <Erika Esquivel PA-C - Last Filed: 06/08/24 02:53> Exam Narrative: APPEARANCE: Well appearing, no pain, no distress, well-nourished. HEAD: normocephalic, atraumatic. EYES: PERRLA/EOMI, conjunctivae clear. NOSE: Normal no drainage EARS:TMS clear with good light reflex. THROAT: Pharynx clear, no exudate. NECK: Supple. No adenopathy, no masses. RESPIRATORY: Airway patent, respirations nonlabored. Clear to auscultation bilaterally, no rales, rhonchi, wheezing. CARDIOVASCULAR: Regular rate and rhythm without murmurs rubs or gallops. ABDOMINAL: Soft, nontender, nondistended, normal bowel sounds MUSCULOSKELETAL: Moves all extremities. Strength/ROM intact, No edema, No calf tenderness. NEURO: Alert. Cranial nerves II through XII intact. Good gait. Good coordination. Tingling over the infraorbital nerve distribution SKIN: Tenderness over right infraorbital nerves PSYCHIATRIC: Normal affect/mood. <Timothy Lopez MD - Last Filed: 06/07/24 19:15> Course Vital Signs Vital signs: Vital Signs Temperature 97.8 F 06/07/24 12:35 Pulse Rate 84 06/07/24 12:35 Respiratory Rate 14 06/07/24 12:35 Blood Pressure 152/103 H 06/07/24 12:35 Pulse Oximetry 100 06/07/24 12:35 Oxygen Delivery Room Air 06/07/24 12:35 Temperature 97.7 F 06/07/24 15:14 Pulse Rate 70 06/07/24 15:53 Respiratory Rate 16 06/07/24 15:53 Blood Pressure 216/93 H 06/07/24 15:53 Pulse Oximetry 97 06/07/24 15:53 Oxygen Delivery Room Air 06/07/24 15:52 <Erika Esquivel PA-C - Last Filed: 06/08/24 02:53> Vital Signs Temperature 97.8 F 06/07/24 12:35 Pulse Rate 84 06/07/24 12:35 Respiratory Rate 14 06/07/24 12:35 Blood Pressure 152/103 H 06/07/24 12:35 Pulse Oximetry 100 06/07/24 12:35 Oxygen Delivery Room Air 06/07/24 12:35 Temperature 97.7 F 06/07/24 15:14 Pulse Rate 70 06/07/24 15:53 Respiratory Rate 16 06/07/24 15:53 Blood Pressure 216/93 H 06/07/24 15:53 Pulse Oximetry 97 06/07/24 15:53 Oxygen Delivery Room Air 06/07/24 15:52 <Timothy Lopez MD - Last Filed: 06/07/24 19:15> MDM - Neuro Symptoms/Deficit MDM Narrative Medical decision making narrative: 69-year-old female presents emergency department for evaluation for right-sided facial tingling in the infraorbital nerve region. Head CT was negative. Patient is currently afebrile with no leukocytosis and hemoglobin of 15.2. INR 0.9, no acute abnormalities the patient's CMP. Elbow x-ray was ordered and is negative. Patient was updated on the results of workup. Patient was encouraged close follow-up with primary care physician. Patient was also educated on reasons to return to the emergency department. All questions concerns were addressed. <Timothy Lopez MD - Last Filed: 06/07/24 19:15> Differential Diagnosis Differential diagnosis: Likely subarachnoid hemorrhage, peripheral neuropathy, cerebrovascular accident and transient cerebral ischemia <Timothy Lopez MD - Last Filed: 06/07/24 19:15> Lab Data Attestation: I reviewed the patient's lab results. <Timothy Lopez MD - Last Filed: 06/07/24 19:15> Result diagrams: 06/07/24 15:18 06/07/24 15:18 <Erika Esquivel PA-C - Last Filed: 06/08/24 02:53> Labs: Lab Results 06/07/24 Range/Units 15:18 WBC 8.1 (4.5-10.0) K/mm3 RBC 4.96 (4.2-5.4) M/mm3 Hgb 15.2 H (12.0-15.0) g/dL Hct 45.6 (37.0-47.0) % MCV 91.9 (80-100) fl MCH 30.6 (26-34) pg MCHC 33.3 (32-36) g/dl RDW 13.9 (11.5-14.5) % Plt Count 195 (150-375) k/mm3 MPV 10.5 H (7.4-10.4) fl Immature Gran % (Auto) 0.2 (0-0.5) % Neut % (Auto) 59.0 (45.5-73.1) % Lymph % (Auto) 31.6 (18.3-44.2) % [place] % (Auto) 8.1 (2.6-8.5) % Eos % (Auto) 0.5 (0-4.4) % Baso % (Auto) 0.6 (0.2-1.2) % Lymph # (Auto) 2.56 (0.9-3.2) K/mm3 [place] # (Auto) 0.7 H (0.1-0.6) K/mm3 Eos # (Auto) 0.0 (0-0.3) K/mm3 Baso # (Auto) 0.1 (0.0-0.1) K/mm3 Abs Immat Gran (auto) 0.02 (0.00-0.031) K/mm3 Absolute Neuts (auto) 4.8 (1.3-6.7) K/mm3 Absolute Nucleated RBC 0.000 (0.0-0.012) K/mm3 Nucleated RBC % 0.0 (0.0-0.2) % PT 12.7 (11.1-14.7) Seconds INR 0.9 APTT 29.8 (22.3-36.8) Seconds Sodium 138 (137-145) mmol/L Potassium 4.0 (3.4-5.0) mmol/L Chloride 103 (98-107) mmol/L Carbon Dioxide 27 (22-30) mmol/L Anion Gap 8 (4-12) mmol/L BUN 19 H (7-17) mg/dL Creatinine 0.77 (0.7-1.0) mg/dL Estim Creat Clear Calc 49 ml/min Estimated GFR > 60 (59 - ) Glucose 98 (65-110) mg/dL Calcium 10.1 (8.4-10.2) mg/dL Total Bilirubin 0.6 (0.2-1.3) mg/dL AST 31 (14-36) U/L ALT 37 H (6-35) U/L Alkaline Phosphatase 80 (38-126) U/L Troponin I < 0.012 (0.000-0.034) ng/mL Total Protein 8.0 (6.3-8.2) g/dL Albumin 4.4 (3.5-5.1) g/dL <Erika Esquivel PA-C - Last Filed: 06/08/24 02:53> Lab Results 06/07/24 Range/Units 15:18 WBC 8.1 (4.5-10.0) K/mm3 RBC 4.96 (4.2-5.4) M/mm3 Hgb 15.2 H (12.0-15.0) g/dL Hct 45.6 (37.0-47.0) % MCV 91.9 (80-100) fl MCH 30.6 (26-34) pg MCHC 33.3 (32-36) g/dl RDW 13.9 (11.5-14.5) % Plt Count 195 (150-375) k/mm3 MPV 10.5 H (7.4-10.4) fl Immature Gran % (Auto) 0.2 (0-0.5) % Neut % (Auto) 59.0 (45.5-73.1) % Lymph % (Auto) 31.6 (18.3-44.2) % [place] % (Auto) 8.1 (2.6-8.5) % Eos % (Auto) 0.5 (0-4.4) % Baso % (Auto) 0.6 (0.2-1.2) % Lymph # (Auto) 2.56 (0.9-3.2) K/mm3 [place] # (Auto) 0.7 H (0.1-0.6) K/mm3 Eos # (Auto) 0.0 (0-0.3) K/mm3 Baso # (Auto) 0.1 (0.0-0.1) K/mm3 Abs Immat Gran (auto) 0.02 (0.00-0.031) K/mm3 Absolute Neuts (auto) 4.8 (1.3-6.7) K/mm3 Absolute Nucleated RBC 0.000 (0.0-0.012) K/mm3 Nucleated RBC % 0.0 (0.0-0.2) % PT 12.7 (11.1-14.7) Seconds INR 0.9 APTT 29.8 (22.3-36.8) Seconds Sodium 138 (137-145) mmol/L Potassium 4.0 (3.4-5.0) mmol/L Chloride 103 (98-107) mmol/L Carbon Dioxide 27 (22-30) mmol/L Anion Gap 8 (4-12) mmol/L BUN 19 H (7-17) mg/dL Creatinine 0.77 (0.7-1.0) mg/dL Estim Creat Clear Calc 49 ml/min Estimated GFR > 60 (59 - ) Glucose 98 (65-110) mg/dL Calcium 10.1 (8.4-10.2) mg/dL Total Bilirubin 0.6 (0.2-1.3) mg/dL AST 31 (14-36) U/L ALT 37 H (6-35) U/L Alkaline Phosphatase 80 (38-126) U/L Troponin I < 0.012 (0.000-0.034) ng/mL Total Protein 8.0 (6.3-8.2) g/dL Albumin 4.4 (3.5-5.1) g/dL <Timothy Lopez MD - Last Filed: 06/07/24 19:15> Imaging Data Radiologist's impression: Impressions Elbow X-Ray 06/07/24 16:18 IMPRESSION: No acute fracture or dislocation, as detailed above. Head CT 06/07/24 16:26 Impression: No acute intracranial hemorrhage or suspicious mass effect. <Timothy Lopez MD - Last Filed: 06/07/24 19:15> Critical Care Time Critical Care Time Critical Care Time: No <Erika Esquivel PA-C - Last Filed: 06/08/24 02:53> Discharge Plan Discharge Clinical Impression: Contusion of infraorbital nerve <Erika Esquivel PA-C - Last Filed: 06/08/24 02:53> Patient Disposition: Home, Self-Care <Erika Esquivel PA-C - Last Filed: 06/08/24 02:53> Condition: Stable <Erika Esquivel PA-C - Last Filed: 06/08/24 02:53> Instructions: Antibiotic Form, Paresthesia (ED) <Erika Esquivel PA-C - Last Filed: 06/08/24 02:53> Additional Instructions: Have close follow-up with your primary care physician. If you have any worsening symptoms then please call or return to the emergency department. <Erika Esquivel PA-C - Last Filed: 06/08/24 02:53> Patient Language: Greenlandic <Erika Esquivel PA-C - Last Filed: 06/08/24 02:53> Prescriptions: No Action atorvastatin 20 mg tablet 20 mg PO DAILY lisinopril 10 mg tablet 10 mg PO DAILY lorazepam 0.5 mg tablet 0.5 mg PO PRN PRN (Reason: Anxiety) <Erika Esquivel PA-C - Last Filed: 06/08/24 02:53> Follow-up/Referrals: Darshan,MD El [Primary Care Provider] - <Erika Esquivel PA-C - Last Filed: 06/08/24 02:53>
--- NOTE | 2024-06-07 14:54 | ECG_ITS ---
Test Date: 2024-06-07 15:13:35 Measurements Intervals [place] Rate: 67 P: 74 [place]: 134 QRS: -27 QRSD: 83 T: 31 QT: 404 QTc: 427 Interpretive Statements SINUS RHYTHM POSSIBLE LEFT ATRIAL ENLARGEMENT DELAYED PRECORDIAL R/S TRANSITION BASELINE ARTIFACT- I, II, AVR, AVL, AVF, V4 BORDERLINE ECG No previous ECG available for comparison Electronically Signed On 06-08-2024 09:43:47 OUTSIDE MACHINIST SUPERVISOR by Louis Simpson D.O.
[2024-06-07 15:14] VITALS: BP 196/91; PULSE 65; RESP 18; TEMP 36.5; O2SAT 98
[2024-06-07 15:22] LABS: Basophils Absolute Auto 0.1 K/mm3 (0.0-0.1); Basophils Percent Auto 0.6 % (0.2-1.2); Eosinophils Percent Auto 0.5 % (0-4.4); Hematocrit 45.6 % (37.0-47.0); Hemoglobin 15.2 g/dL (12.0-15.0); Immature Granulocyte Absolute 0.02 K/mm3 (0.00-0.031); Immature Granulocyte Percent A 0.2 % (0-0.5); Lymphocytes Absolute Auto 2.56 K/mm3 (0.9-3.2); Lymphocytes Percent Auto 31.6 % (18.3-44.2); Mean Corpuscular HGB Conc 33.3 g/dl (32-36); Mean Corpuscular Hemoglobin 30.6 pg (26-34); Mean Corpuscular Volume 91.9 fl (80-100); Mean Platelet Volume 10.5 fl (7.4-10.4); Monocytes Absolute Auto 0.7 K/mm3 (0.1-0.6); Monocytes Percent Auto 8.1 % (2.6-8.5); Neutrophils Absolute Auto 4.8 K/mm3 (1.3-6.7); Platelet Count Result 195 k/mm3 (150-375); Red Blood Count 4.96 M/mm3 (4.2-5.4); Red Cell Distribution Width 13.9 % (11.5-14.5); White Blood Count 8.1 K/mm3 (4.5-10.0)
--- OUTSIDE RECORDS SUMMARY | 2024-06-07 15:24 | XMS_ITS | Encounter Summary ---
Author Organization [facility] Address 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
--- OUTSIDE RECORDS SUMMARY | 2024-06-07 15:24 | XMS_ITS | Encounter Summary ---
Author Organization [facility] Address 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
--- OUTSIDE RECORDS SUMMARY | 2024-06-07 15:25 | XMS_ITS | Encounter Summary ---
Author Organization [facility] Address 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 Gender Identity Not on file Sexual Orientation [...] PM CDT Narrative 02/02/2008 2:50 PM CDT [address] [place], [place] [address] Admit Date: 01/30/2008 LLUVIA WEBER Sex: F Admit Prov: YONI, MAURILIO Date: 1955 Primary Care Prov: MAURILIO PISANO CMRN: [id number] Room: [facility] SSN: [id number] IMAGING SERVICES Ordering Prov: MAURILIO PISANO Accession Number: [id number] Interpretation BILATERAL SCREENING MAMMOGRAM 01/30/2008 Reason for [...] 02/02/2008 [facility] [address] [place], [place] [address] Admit Date: 01/30/2008 LLUVIA WEBER Sex: F Admit Prov: MAURILIO PISANO Date:1955 Primary Care Prov: JAIME PISANOORES CMRN: [id number] Room: [facility] SSN: [id number] IMAGING SERVICES Ordering Prov: MAURILIO PISANO Interpretation [...] mammogram documented in this encounter Care Teams Hospital Cleaner Relationship Specialty Start Date End Date Maurilio Pisano MD [address] [address] PCP - General 04/01/15 documented as of this encounter
--- OUTSIDE RECORDS SUMMARY | 2024-06-07 15:25 | XMS_ITS | Clinical Summary ---
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 OPEN ACCESS HMO Care Teams Pm Technician Relationship Specialty Start Date End Date Kristi Pisano MD [address] [address] PCP - General 04/01/15
--- OUTSIDE RECORDS SUMMARY | 2024-06-07 15:25 | XMS_ITS | Encounter Summary ---
Author Organization [facility] Address 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
--- OUTSIDE RECORDS SUMMARY | 2024-06-07 15:25 | XMS_ITS | Encounter Summary ---
Author Organization [facility] Address 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
--- OUTSIDE RECORDS SUMMARY | 2024-06-07 15:25 | XMS_ITS | Continuity of Care Document ---
Author Organization [facility] Address [address] [place] [address] Phone Care Team Providers Care Scale Tester Name Role Phone Schuler OD, Blu Unavailable Unavailable Advance Directives Directive Yes / No Effective Date File Name No Information Encounters Encounter Description Practice Location Reason(s) For Visit Diagnoses Date Provider Providers Copied on Encounter [facility], [address], [place], [place], [id number], [place] tel:[phone] [facility] No Information 0-200 4 Schuler OD Blu. [address] , [address], [place], [address], [place]. tel:[phone] Family History Family Member Type Diagnosis Age [...]
[2024-06-07 15:33] LABS: INR 0.9; Prothrombin Time 12.7 Seconds (11.1-14.7)
[2024-06-07 15:34] LABS: Partial Thromboplastin Time 29.8 Seconds (22.3-36.8)
[2024-06-07 15:43] LABS: Alanine Aminotransferase 37 U/L (6-35); Albumin Level 4.4 g/dL (3.5-5.1); Alkaline Phosphatase 80 U/L (38-126); Anion Gap 8 mmol/L (4-12); Aspartate Amino Transferase 31 U/L (14-36); Bilirubin,Total 0.6 mg/dL (0.2-1.3); Blood Urea Nitrogen 19 mg/dL (7-17); Calcium 10.1 mg/dL (8.4-10.2); Carbon Dioxide 27 mmol/L (22-30); Chloride 103 mmol/L (98-107); Estimated CRCL calculation 49 ml/min; Estimated Glomerular Filt Rate > 60; Glucose 98 mg/dL (65-110); Sodium 138 mmol/L (137-145)
[2024-06-07 15:52] VITALS: BP 216/91; PULSE 65; RESP 16; O2SAT 100
[2024-06-07 15:53] VITALS: BP 216/93; PULSE 70; RESP 16; O2SAT 97
[2024-06-07 15:55] LABS: Troponin I < 0.012 ng/mL (0.000-0.034)
== END 2024-06-07 17:06 | disposition home or self-care (01) ==
PROVIDERS: Physician Assistant; Emergency Provider Emergency Medicine; PCP Family Medicine
DX: S04.011A Injury of optic nerve, right eye, initial encounter (principal); M25.521 Pain in right elbow; J44.9 Chronic obstructive pulmonary disease, unspecified; E78.5 Hyperlipidemia, unspecified; I10 Essential (primary) hypertension; F17.210 Nicotine dependence, cigarettes, uncomplicated
CPT/HCPCS: 36415; 70450; 73080; 80053; 84484; 85025; 85610; 85730; 93005; 99284